=== PATIENT | female | born 1985 | race African-American/Black ===

== ENCOUNTER 2016-04-30 18:29 | Emergency (ER) | payer MEDICAID ==
[2016-04-30] MEDS ORDERED: ONDANSETRON 4 MG TAB.RAPDIS PO ONE (19:27)
--- NOTE | 2016-04-30 19:28 | ER Document Report ---
ED Medical Screen (RME) - General Stated Complaint: BODY PAIN Time seen by provider: 19:28 Mode of Arrival: Wheelchair Information source: Patient Notes: 30 yo female c/o low midline pelvic pain for serveral days. No vaginal discharge or dysuria. Chest pain yesterday on the right side. LMP 12-13-16 Hx ovarain cyst TRAVEL OUTSIDE OF THE [place] IN LAST 30 DAYS: No - Related Data Allergies/Adverse Reactions: No Known Allergies Allergy (Verified 04/30/16 19:19) Past Medical History Pulmonary Medical History: Reports: Hx Asthma, Hx Pneumonia Neurological Medical History: Reports: Hx Migraine Endocrine Medical History: Denies: Hx Diabetes Mellitus Type 1, Hx Diabetes Mellitus Type 2 Renal/ Medical History: Reports: Hx Kidney Stones, Hx Ovarian Cysts Psychiatric Medical History: Denies: Hx Depression Past Surgical History: Reports: Hx Kidney (Renal Surgery) - stents for stones, Hx Tonsillectomy, Hx Urinary Tract Surgery - ureter stents - Immunizations Immunizations up to date: Yes Hx Diphtheria, Pertussis, Tetanus Vaccination: Yes Physical Exam - Vital signs Vitals: Temp Pulse Resp BP Pulse Ox 98.6 F 108 H 16 117/74 100 04/30/16 18:41 04/30/16 18:41 04/30/16 18:41 04/30/16 18:41 04/30/16 18:41 Course - Vital Signs Vital signs: Temp Pulse Resp BP Pulse Ox 98.6 F 107 H 16 117/74 100 04/30/16 19:19 04/30/16 19:19 04/30/16 19:19 04/30/16 19:19 04/30/16 19:19
[2016-04-30] MEDS ORDERED: KETOROLAC TROMETHAMINE 60 MG/2 ML SDV IM ONE (20:12)
[2016-04-30] MEDS ORDERED: OXYCODONE-ACETAMINOPHEN 5-325 MG TABLET PO ONE (20:12)
[2016-04-30 20:23] LABS: APPEARANCE,URINE SLIGHTLY-CLOUDY; BILIRUBIN,URINE NEGATIVE (NEGATIVE); GLUCOSE, URINE NEGATIVE (NEGATIVE); KETONES,URINE NEGATIVE (NEGATIVE); LEUKOCYTE ESTERASE,URINE LARGE (NEGATIVE); NITRITE,URINE POSITIVE (NEGATIVE); PROTEIN,URINE NEGATIVE (NEGATIVE); URINE SPECIFIC GRAVITY 1.015; UROBILINOGEN,URINE NEGATIVE mg/dL (<2.0)
[2016-04-30] MEDS ORDERED: CEFTRIAXONE INJ 1000 MG VIAL IM ONE (20:53)
[2016-04-30] MEDS ORDERED: LIDOCAINE 1% INJ-PF (10 MG/ML) 30 ML SDV INFIL ONE (20:53)
[2016-04-30] MEDS ORDERED: ONDANSETRON ODT 4 MG TAB (6 TAB/DSPK) PO PRN (20:54)
[2016-04-30] MEDS ORDERED: HYDROCODONE/ACETAMINOPHEN 5-325 MG 6 TAB/DSPK PO PRN (20:54)
--- NOTE | 2016-04-30 20:54 | ER Document Report ---
ED General - General Chief Complaint: Abdominal Pain Stated Complaint: BODY PAIN Mode of Arrival: Wheelchair Notes: Patient is a 30-year-old female without significant past medical history who presents with bilateral flank pain, dysuria, and suprapubic abdominal pain for the past 3 days. Describes it as constant, dull, aching pain. Nothing improves or worsens the pain. States she's had similar symptoms in the past with urinary tract infections. She has not had any fever. Notes associated nausea without vomiting. She has not spoken to her primary care physician regarding today's concerns. Denies any headache, neck pain, lethargy, or fever. TRAVEL OUTSIDE OF THE [place] IN LAST 30 DAYS: No - Related Data Allergies/Adverse Reactions: No Known Allergies Allergy (Verified 04/30/16 19:19) Past Medical History - General Information source: Patient - Social History Smoking Status: Current Every Day Smoker Chew tobacco use (# tins/day): No Frequency of alcohol use: Social Drug Abuse: None Lives with: Spouse/Significant other Family History: Reviewed & Not Pertinent Patient has suicidal ideation: No Patient has homicidal ideation: No Pulmonary Medical History: Reports: Hx Asthma, Hx Pneumonia Neurological Medical History: Reports: Hx Migraine Endocrine Medical History: Denies: Hx Diabetes Mellitus Type 1, Hx Diabetes Mellitus Type 2 Renal/ Medical History: Reports: Hx Kidney Stones, Hx Ovarian Cysts Psychiatric Medical History: Denies: Hx Depression Past Surgical History: Reports: Hx Kidney (Renal Surgery) - stents for stones, Hx Tonsillectomy, Hx Urinary Tract Surgery - ureter stents - Immunizations Immunizations up to date: Yes Hx Diphtheria, Pertussis, Tetanus Vaccination: Yes Review of Systems - Review of Systems Notes: Constitutional: Negative for fever. HENT: Negative for sore throat. Eyes: Negative for visual changes. Cardiovascular: Negative for chest pain. Respiratory: Negative for shortness of breath. Gastrointestinal: Positive for abdominal pain, negative for vomiting or diarrhea. Genitourinary: Positive for dysuria and bilateral flank pain. Musculoskeletal: Negative for back pain. Skin: Negative for rash. Neurological: Negative for headaches, weakness or numbness. 10 point ROS negative except as marked above and in HPI. Physical Exam - Vital signs Vitals: Temp Pulse Resp BP Pulse Ox 98.6 F 108 H 16 117/74 100 04/30/16 18:41 04/30/16 18:41 04/30/16 18:41 04/30/16 18:41 04/30/16 18:41 Interpretation: Tachycardic Notes: PHYSICAL EXAMINATION: GENERAL: Well-appearing, well-nourished and in no acute distress. HEAD: Atraumatic, normocephalic. EYES: Pupils equal round and reactive to light, extraocular movements intact, sclera anicteric, conjunctiva are normal. ENT: nares patent, oropharynx clear without exudates. Moist mucous membranes. NECK: Normal range of motion, supple without lymphadenopathy LUNGS: Breath sounds clear to auscultation bilaterally and equal. No wheezes rales or rhonchi. HEART: Regular rate and rhythm without murmurs ABDOMEN: Soft, nontender, normoactive bowel sounds. No guarding, no rebound. No masses appreciated. Bilateral CVA tenderness on palpation Pelvic: White vaginal discharge. No cervical motion tenderness. No focal adnexal tenderness. Suprapubic tenderness to palpation EXTREMITIES: Normal range of motion, no pitting or edema. No cyanosis. NEUROLOGICAL: No focal neurological deficits. Moves all extremities spontaneously and on command. PSYCH: Normal mood, normal affect. SKIN: Warm, Dry, normal turgor, no rashes or lesions noted. Course - Re-evaluation Re-evalutation: 05/01/16 03:33 Presentation is most consistent with acute pyelonephritis. Laboratories do demonstrate a large amount of white blood cells in the urine as well as bacteria. Patient has had constitutional symptoms at home as well as a fever. CVA tenderness is present on exam. The remainder laboratories are relatively unremarkable without evidence of renal dysfunction. I do not suspect an acute appendicitis, biliary pathology, pancreatitis, intra-abdominal abscess, or tubo- ovarian abscess based on history and examination. Patient has been given a dose of IV ceftriaxone and a liter of fluids. Patient is able to tolerate oral intake without difficulty. Will be discharged home on 7 day course of cephalexin. A urine culture has been sent. Strict return precautions and follow-up recommendations have been discussed at length. - Vital Signs Vital signs: Temp Pulse Resp BP Pulse Ox 98.6 F 100 16 128/61 H 99 04/30/16 22:12 04/30/16 22:12 04/30/16 22:12 04/30/16 22:12 04/30/16 22:12 - Laboratory Result Diagrams: 04/30/16 20:40 04/30/16 20:40 Laboratory results interpreted by me: 04/30/16 04/30/16 20:01 20:40 WBC 13.3 H Hgb 11.6 L Hct 35.7 L MCH 26.5 L Absolute Neutrophils 10.2 H Urine Blood SMALL H Urine Nitrite POSITIVE H Ur Leukocyte Esterase LARGE H Discharge - Discharge Clinical Impression: Pyelonephritis, Bacterial vaginosis Condition: Good Disposition: HOME, SELF-CARE Additional Instructions: You have been diagnosed with a condition called pyelonephritis which is an infection involving your kidneys and bladder. You have been given a dose of antibiotics here in the emergency department to help begin to treat this infection. Your pelvic exam also shows an overgrowth of normal vaginal bacteria called bacterial vaginosis. Your also being sent home on antibiotics for both of these infections. Please start taking these later on today when you fill the prescription. Complete the course even if you feel better. Please return if you have persistent vomiting, pass out, have worsening pain, become unable to tolerate fluids, or have any other symptoms that are concerning to you. Please follow-up with your primary care physician in the next 24-48 hours. Prescriptions: Cephalexin Monohydrate [Keflex 500 mg Capsule] 500 mg PO QID #28 capsule Fluconazole [Diflucan] 200 mg PO ONCE PRN #1 tablet PRN Reason: Metronidazole [Flagyl 500 mg Tablet] 500 mg PO Q6H #28 tablet Referrals: NATASHA MAYES PA-C [Primary Care Provider] - Follow up as needed
[2016-04-30 21:05] LABS: ABSOLUTE EOSINOPHILS # (AUTO) 0.2 10^3/uL (0.0-0.6); ABSOLUTE MONOCYTES (AUTO) 0.8 10^3/uL (0.1-1.4); ABSOLUTE NEUT (AUTO) 10.2 10^3/uL (1.7-8.2); BASOPHILS % (AUTO) 0.3 % (0-2); EOSINOPHILS % (AUTO) 1.6 % (0-6); HEMATOCRIT 35.7 % (36.0-47.0); HEMOGLOBIN 11.6 g/dL (12.0-15.5); HGB HCT DIFFERENCE -0.9; LYMPHOCYTES % (AUTO) 15.1 % (13-45); MEAN CORPUSCULAR HEMOGLOBIN 26.5 pg (27.0-33.4); MEAN CORPUSCULAR HGB CONC 32.6 g/dL (32.0-36.0); MEAN CORPUSCULAR VOLUME 81 fl (80-97); MONOCYTES % (AUTO) 6.3 % (3-13); RED CELL DISTRIBUTION WIDTH 13.5 % (11.5-14.0); SEGMENTED NEUTROPHILS % (AUTO) 76.7 % (42-78); WHITE BLOOD COUNT 13.3 10^3/uL (4.0-10.5)
[2016-04-30] MEDS ORDERED: CEFTRIAXONE 1 GM/D5W RTU 50 ML IV ONE (21:20)
[2016-04-30 21:24] LABS: ALANINE AMINOTRANSFERASE 34 U/L (9-52); ALBUMIN 3.8 g/dL (3.5-5.0); ALKALINE PHOSPHATASE 75 U/L (38-126); ANION GAP 13 (5-19); ASPARTATE AMINO TRANSFERASE 14 U/L (14-36); BILIRUBIN,TOTAL 0.6 mg/dL (0.2-1.3); BLOOD UREA NITROGEN 7 mg/dL (7-20); CALCIUM 9.1 mg/dL (8.4-10.2); CARBON DIOXIDE 25 mmol/L (22-30); CHLORIDE 102 mmol/L (98-107); CREATININE RESULT 0.53 mg/dL (0.52-1.25); GLUCOSE 83 mg/dL (75-110); POTASSIUM 3.8 mmol/L (3.6-5.0); SODIUM 139.9 mmol/L (137-145); TOTAL PROTEIN 6.8 g/dL (6.3-8.2)
--- NOTE | 2016-04-30 21:29 | EKG REPORT ---
SEVERITY:- OTHERWISE NORMAL ECG - SINUS TACHYCARDIA : Confirmed by: Caleb Toth 30-Apr-2016 21:28:22
[2016-04-30 22:14] VITALS: BP 128/61
[2016-04-30 22:20] LABS: CHLAM PCR NOT DETECTED (NOT DETECT)
== END 2016-04-30 22:06 | disposition home or self-care (01) ==
LOC: ER 18:29
DX: N12 Tubulo-interstitial nephritis, not specified as acute or chronic (principal); N76.0 Acute vaginitis; B96.89 Other specified bacterial agents as the cause of diseases classified elsewhere; R10.9 Unspecified abdominal pain; R30.0 Dysuria; R11.0 Nausea; R00.0 Tachycardia, unspecified; J45.909 Unspecified asthma, uncomplicated; F17.200 Nicotine dependence, unspecified, uncomplicated; Z87.440 Personal history of urinary (tract) infections; Z87.442 Personal history of urinary calculi; Z87.42 Personal history of other diseases of the female genital tract; Z98.890 Other specified postprocedural states
CPT/HCPCS: 93005; 99283; 96372; 96365; 36415; 87086; 87210; 85025; 81025; 87088; 80053; 81001; 87186; 87491; 87591; 93010; J1885; S0119; J0696

== ENCOUNTER 2016-05-02 20:03 | Emergency (ER) | payer MEDICAID ==
--- NOTE | 2016-05-02 20:44 | ER Document Report ---
ED Medical Screen (RME) - General Stated Complaint: LOWER ABDOMINAL PAIN Time seen by provider: 20:42 Mode of Arrival: Ambulatory Information source: Patient Notes: 30-year-old female complaining of 5/5 left lower quadrant abdominal pain that started yesterday. She was seen here Sunday and diagnosed with urinary tract infection. Pelvic exam was done. No imaging. She's been taking Keflex and the urine culture showed Escherichia coli that should be sensitive to the Keflex. She is nauseated. TRAVEL OUTSIDE OF THE [place] IN LAST 30 DAYS: No - Related Data Allergies/Adverse Reactions: No Known Allergies Allergy (Verified 04/30/16 19:19) Past Medical History Pulmonary Medical History: Reports: Hx Asthma, Hx Pneumonia Neurological Medical History: Reports: Hx Migraine Endocrine Medical History: Denies: Hx Diabetes Mellitus Type 1, Hx Diabetes Mellitus Type 2 Renal/ Medical History: Reports: Hx Kidney Stones, Hx Ovarian Cysts Psychiatric Medical History: Denies: Hx Depression Past Surgical History: Reports: Hx Kidney (Renal Surgery) - stents for stones, Hx Tonsillectomy, Hx Urinary Tract Surgery - ureter stents - Immunizations Immunizations up to date: Yes Hx Diphtheria, Pertussis, Tetanus Vaccination: Yes Physical Exam - Vital signs Vitals: Temp Pulse Resp BP Pulse Ox 98.7 F 115 H 18 121/65 97 05/02/16 20:12 05/02/16 20:12 05/02/16 20:12 05/02/16 20:12 05/02/16 20:12 Course - Vital Signs Vital signs: Temp Pulse Resp BP Pulse Ox 98.7 F 115 H 18 121/65 97 05/02/16 20:12 05/02/16 20:12 05/02/16 20:12 05/02/16 20:12 05/02/16 20:12
[2016-05-02] MEDS ORDERED: ONDANSETRON 4 MG TAB.RAPDIS PO ONE (20:46)
[2016-05-02] MEDS ORDERED: OXYCODONE-ACETAMINOPHEN 5-325 MG TABLET PO ONE (20:48)
[2016-05-02 21:32] LABS: ABSOLUTE EOSINOPHILS # (AUTO) 0.1 10^3/uL (0.0-0.6); ABSOLUTE LYMPHOCYTES (AUTO) 1.6 10^3/uL (0.5-4.7); ABSOLUTE MONOCYTES (AUTO) 0.6 10^3/uL (0.1-1.4); ABSOLUTE NEUT (AUTO) 9.7 10^3/uL (1.7-8.2); BASOPHILS % (AUTO) 0.4 % (0-2); EOSINOPHILS % (AUTO) 1.1 % (0-6); HEMATOCRIT 34.5 % (36.0-47.0); HEMOGLOBIN 11.2 g/dL (12.0-15.5); HGB HCT DIFFERENCE -0.9; MEAN CORPUSCULAR HEMOGLOBIN 26.6 pg (27.0-33.4); MEAN CORPUSCULAR HGB CONC 32.4 g/dL (32.0-36.0); MEAN CORPUSCULAR VOLUME 82 fl (80-97); MONOCYTES % (AUTO) 4.7 % (3-13); RED BLOOD COUNT 4.21 10^6/uL (3.72-5.28); RED CELL DISTRIBUTION WIDTH 13.3 % (11.5-14.0); SEGMENTED NEUTROPHILS % (AUTO) 80.8 % (42-78)
[2016-05-02 21:38] LABS: APPEARANCE,URINE SLIGHTLY-CLOUDY; BILIRUBIN,URINE NEGATIVE (NEGATIVE); GLUCOSE, URINE NEGATIVE (NEGATIVE); KETONES,URINE NEGATIVE (NEGATIVE); LEUKOCYTE ESTERASE,URINE MODERATE (NEGATIVE); NITRITE,URINE NEGATIVE (NEGATIVE); PROTEIN,URINE NEGATIVE (NEGATIVE); URINE SPECIFIC GRAVITY 1.023
[2016-05-02 21:56] LABS: ALANINE AMINOTRANSFERASE 24 U/L (9-52); ALBUMIN 3.9 g/dL (3.5-5.0); ALKALINE PHOSPHATASE 67 U/L (38-126); ANION GAP 13 (5-19); ASPARTATE AMINO TRANSFERASE 17 U/L (14-36); BILIRUBIN,TOTAL 0.4 mg/dL (0.2-1.3); BLOOD UREA NITROGEN 9 mg/dL (7-20); CALCIUM 9.3 mg/dL (8.4-10.2); CARBON DIOXIDE 28 mmol/L (22-30); CHLORIDE 99 mmol/L (98-107); CREATININE RESULT 0.54 mg/dL (0.52-1.25); GLUCOSE 131 mg/dL (75-110); POTASSIUM 3.2 mmol/L (3.6-5.0); SODIUM 140.2 mmol/L (137-145); TOTAL PROTEIN 7.1 g/dL (6.3-8.2)
[2016-05-02] MEDS ORDERED: NORMAL SALINE 1000 ML 1,000 ML IV ONE (21:58)
[2016-05-02] MEDS ORDERED: CEFTRIAXONE INJ 1000 MG VIAL IV ONE (21:58)
[2016-05-02] MEDS ORDERED: MORPHINE SULFATE 10 MG/ML INJ IV ONE (22:08)
[2016-05-02] MEDS ORDERED: ONDANSETRON HCL INJ/PF 4 MG/2 ML SDV IV ONE (22:08)
--- NOTE | 2016-05-02 22:08 | ER Document Report ---
ED General - General Chief Complaint: Lower Abdominal Pain Stated Complaint: LOWER ABDOMINAL PAIN Mode of Arrival: Ambulatory Notes: Patient is a 30 year old female presents with complaint of left lower quadrant abdominal pain. Some nausea. No vomiting. Some alternating feelings of hot and cold. Some palpitations. She was seen here 2 days ago and had a pelvic exam performed. Cultures were negative for gonorrhea and chlamydia. Her urinalysis showed evidence of UTI at that time. She start Keflex. Since then her dysuria is gone. She still has continued pain and left lower quadrant. She does have a previous history of kidney stones and ureteral stents that were placed in 2004 when she was . Ureteral stents have since been removed. She's concerned because she still has pain in left lower quadrantbeen having palpitations. No other complaints at this time. TRAVEL OUTSIDE OF THE [place] IN LAST 30 DAYS: No - Related Data Allergies/Adverse Reactions: No Known Allergies Allergy (Verified 05/02/16 21:56) Past Medical History - General Information source: Patient - Social History Smoking Status: Unknown if Ever Smoked Family History: Reviewed & Not Pertinent Patient has suicidal ideation: No Patient has homicidal ideation: No Pulmonary Medical History: Reports: Hx Asthma, Hx Pneumonia Neurological Medical History: Reports: Hx Migraine Endocrine Medical History: Denies: Hx Diabetes Mellitus Type 1, Hx Diabetes Mellitus Type 2 Renal/ Medical History: Reports: Hx Kidney Stones, Hx Ovarian Cysts Psychiatric Medical History: Denies: Hx Depression Past Surgical History: Reports: Hx Kidney (Renal Surgery) - stents for stones, Hx Tonsillectomy, Hx Urinary Tract Surgery - ureter stents - Immunizations Immunizations up to date: Yes Hx Diphtheria, Pertussis, Tetanus Vaccination: Yes Review of Systems - Review of Systems Notes: My Normal Review Basic REVIEW OF SYSTEMS: CONSTITUTIONAL : Denies fever, chills, or sweats. Denies recent illness.ion. RESPIRATORY: Denies cough, cold, or chest congestion. Denies shortness of breath, difficulty breathing, or wheezing. GASTROINTESTINAL: Left lower quadrant abdominal pain. Denies nausea, vomiting, or diarrhea. Denies constipation. Last BM: GENITOURINARY: Some dysuria which is improving.. FEMALE GENITOURINARY: Denies vaginal bleeding, abnormal or irregular periods. MUSCULOSKELETAL: Denies neck or back pain or joint pain or swelling. SKIN: Denies rash or skin lesions. NEUROLOGICAL: Denies altered mental status or loss of consciousness. Denies headache. Denies weakness or paralysis or loss of use of either side. Denies problems with gait or speech. Denies sensory or motor loss. ALL OTHER SYSTEMS REVIEWED AND NEGATIVE. Physical Exam - Vital signs Vitals: Temp Pulse Resp BP Pulse Ox 98.7 F 115 H 18 121/65 97 05/02/16 20:12 05/02/16 20:12 05/02/16 20:12 05/02/16 20:12 05/02/16 20:12 - Notes Notes: General Appearance: Well nourished, alert, cooperative, no acute distress, no obvious discomfort. Well-appearing. Vitals: reviewed, See vital signs table. Head: no swelling or tenderness to the head Eyes: PERRL, EOMI, Conjuctiva clear Mouth: No decreasd moisture Neck: Supple, no neck tenderness, No thyromegaly Lungs: No wheezing, No rales, No rhonci, No accessory muscle use, good air exchange bilaterally. Heart: Tachycardic rate, Regular rythm, No murmur, no rub Abdomen: Normal BS, soft, No rigidity, mild left lower quadrant abdominal tenderness to palpation, No guarding, no rebound, no abdominal masses, no organomegaly Extremities: strength 5/5 in all extremities, good pulses in all extremities, no swelling or tenderness in the extremities, no edema. Skin: warm, dry, appropriate color, no rash Neuro: speech clear, oriented x 3, normal affect, responds appropriately to questions. Course - Re-evaluation Re-evalutation: 05/03/16 01:54 Patient continues cleanse pain. She says she has some mild right-sided pain. Most her pain isn't the left lower quadrant still. CT scan is negative. Ultrasound does not show anything on the left side that would be concerning. I suspect this still could be related to her urinary tract infection. Her heart rate has improved. She still afebrile. Her laboratory evaluation is unremarkable. We'll give her a different dose of pain medication to see if this makes her more comfortable. - Vital Signs Vital signs: Temp Pulse Resp BP Pulse Ox 98.4 F 91 18 118/57 L 99 05/03/16 00:49 05/03/16 00:49 05/03/16 00:49 05/03/16 00:49 05/03/16 00:49 - Laboratory Result Diagrams: 05/02/16 21:05 05/02/16 21:05 Laboratory results interpreted by me: 05/02/16 05/02/16 05/02/16 21:05 21:05 21:10 WBC 12.0 H Hgb 11.2 L Hct 34.5 L MCH 26.6 L Seg Neutrophils % 80.8 H Absolute Neutrophils 9.7 H Potassium 3.2 L Glucose 131 H Urine Blood MODERATE H Urine Urobilinogen 2.0 H Ur Leukocyte Esterase MODERATE H - Transfer of Care Notes: 05/03/16 03:25 Patient's tachycardia has resolved on recheck her vital signs. Think her tachycardia is most salted from pain. Being that she did have significant left lower quadrant pain a did to CT scan make sure is no associated kidney stone. This is negative. Ultrasound showed that she had a right ovarian cyst as well as another hyperechoic area in the right adnexa. The radiologist mentioned this could represent ectopic if a clinically correlates. Her serum test is clearly negative. It would be highly unlikely for the patient to have a visible ectopic with a negative serum test. Patient's follow up appointment with her doctor tomorrow. I encourage her to continue taking antibiotics they appear to be improving her UTI. I encourage a follow-up with her primary care doctor tomorrow as scheduled. I did give her a copy of her ultrasound. Informed it's very important that her option be reported repeated in 2 weeks to month to make sure that the cyst is not changing and then followed from there. She is understanding of this. Patient be discharged home. I strongly encouraged patient to return to ER shows worsening pain, fevers, vomiting, or feels unwell. Patient agrees with plan and will be discharged home. 05/03/16 03:27 Dictation of this chart was performed using voice recognition software; therefore, there may be some unintended grammatical errors. Discharge - Discharge Clinical Impression: Abdominal pain Qualifiers: Abdominal location: lower abdomen, unspecified Qualified Code(s): R10.30 - Lower abdominal pain, unspecified UTI (urinary tract infection) Qualifiers: Urinary tract infection type: site unspecified Hematuria presence: without hematuria Qualified Code(s): N39.0 - Urinary tract infection, site not specified Ovarian cyst Qualifiers: Laterality: right Qualified Code(s): N83.201 - Unspecified ovarian cyst, right side Condition: Good Disposition: HOME, SELF-CARE Instructions: Oral Narcotic Medication ([facility]) Additional Instructions: Please follow up with your doctor tomorrow as scheduled. please bring your ultrasound results with you. You should have an ultrasound scheduled in the next 2 weeks to reevaluate your right ovary. Your serum test was negative. These means an ectopic is highly unlikely. Please return to the ER immediately if you ave worsening pain, fevers, vomiting, or feel that your symptoms are worsening in any way. Referrals: NATASHA MAYES PA-C [Primary Care Provider] - Follow up tomorrow
[2016-05-02] MEDS ORDERED: POTASSIUM CHLORIDE 10 MEQ TABLET.SA PO ONE (22:20)
[2016-05-03] MEDS ORDERED: HYDROMORPHONE HCL INJ/PF 2 MG/ML AMPULE IV ONE (01:53)
[2016-05-03] MEDS ORDERED: HYDROCODONE/ACETAMINOPHEN 5-325 MG 6 TAB/DSPK PO PRN (03:21)
[2016-05-03 03:50] VITALS: BP 104/52
== END 2016-05-03 03:50 | disposition home or self-care (01) ==
LOC: ER 20:03
DX: N39.0 Urinary tract infection, site not specified (principal); N83.201 Unspecified ovarian cyst, right side; R10.32 Left lower quadrant pain; R11.0 Nausea; R00.2 Palpitations; J45.909 Unspecified asthma, uncomplicated; R00.0 Tachycardia, unspecified; Z87.442 Personal history of urinary calculi
CPT/HCPCS: 99284; 96361; 96374; 96375; 36415; 87086; 83735; 84703; 85025; 80053; 81001; 76830; 93976; 76380; S0119; J2270; J1170; J0696; J2405; J7030

== ENCOUNTER 2016-09-02 16:28 | Emergency (ER) | payer MEDICAID ==
[2016-09-02] MEDS ORDERED: HYDROMORPHONE HCL INJ/PF 2 MG/ML AMPULE IV ONE (16:36)
[2016-09-02] MEDS ORDERED: NORMAL SALINE 1000 ML 1,000 ML IV PRN (16:36)
[2016-09-02] MEDS ORDERED: FENTANYL CITRATE INJ/PF 100 MCG/2 ML AMPUL IV ONE ×2 (17:07→18:36)
[2016-09-02] MEDS ORDERED: PROPOFOL INJ 200 MG/20 ML VIAL IV ONE ×2 (17:08→18:35)
--- NOTE | 2016-09-02 17:09 | ER Document Report ---
ED Extremity Problem, Lower - General Chief Complaint: Ankle Injury Stated Complaint: LEFT ANKLE INJURY Time Seen by Provider: 09/02/16 16:36 Mode of Arrival: Wheelchair Information source: Patient TRAVEL OUTSIDE OF THE [place] IN LAST 30 DAYS: No - HPI Patient complains to provider of: Injury, Pain Location: Ankle Occurred: Just prior to arrival Where: Home Onset/Duration: Sudden Quality of pain: Achy Severity: Severe Pain Level: 5 Context: Fell Recent injury: Yes Associated symptoms: Unable to bear weight Exacerbated by: Movement Relieved by: Nothing Notes: Patient is a 30-year-old female who presents to the emergency room for complaints of left ankle injury after trip and fall at home, patient is unable to ambulate on her ankle, has a positive deformity, denies any numbness or tingling distally, denies any injury elsewhere, history of gallbladder surgery in the past without complications - Related Data Allergies/Adverse Reactions: No Known Allergies Allergy (Verified 09/02/16 16:30) Past Medical History - General Information source: Patient - Social History Smoking Status: Current Every Day Smoker Family History: Reviewed & Not Pertinent Patient has suicidal ideation: No Patient has homicidal ideation: No Pulmonary Medical History: Reports: Hx Asthma, Hx Pneumonia Neurological Medical History: Reports: Hx Migraine Endocrine Medical History: Denies: Hx Diabetes Mellitus Type 1, Hx Diabetes Mellitus Type 2 Renal/ Medical History: Reports: Hx Kidney Stones, Hx Ovarian Cysts. Denies: Hx Peritoneal Dialysis Psychiatric Medical History: Denies: Hx Depression Past Surgical History: Reports: Hx Kidney (Renal Surgery) - stents for stones, Hx Tonsillectomy, Hx Urinary Tract Surgery - ureter stents - Immunizations Immunizations up to date: Yes Hx Diphtheria, Pertussis, Tetanus Vaccination: Yes Review of Systems - Review of Systems Constitutional: No symptoms reported EENT: No symptoms reported Cardiovascular: No symptoms reported Respiratory: No symptoms reported Gastrointestinal: No symptoms reported Genitourinary: No symptoms reported Female Genitourinary: No symptoms reported Musculoskeletal: See HPI Skin: No symptoms reported Hematologic/Lymphatic: No symptoms reported Neurological/Psychological: No symptoms reported -: Yes All other systems reviewed and negative Physical Exam - Vital signs Vitals: Temp Pulse Resp BP Pulse Ox 98.4 F 106 H 30 H 140/105 H 98 09/02/16 16:31 09/02/16 16:31 09/02/16 16:31 09/02/16 16:31 09/02/16 16:31 Interpretation: Hypertensive, Tachycardic - General General appearance: Appears well, Alert - HEENT Head: Normocephalic, Atraumatic Eyes: Normal Pupils: PERRL - Respiratory Respiratory status: No respiratory distress Chest status: Nontender Breath sounds: Normal Chest palpation: Normal - Cardiovascular Rhythm: Regular Heart sounds: Normal auscultation Murmur: No - Abdominal Inspection: Normal Distension: No distension Bowel sounds: Normal Tenderness: Nontender Organomegaly: No organomegaly - Back Back: Normal, Nontender - Extremities General upper extremity: Normal inspection, Nontender, Normal color, Normal ROM , Normal temperature General lower extremity: Normal color, Normal temperature. No: Karena's sign Ankle: Deformity - Positive deformity to left ankle, pain with range of motion testing, distal sensation and motor is intact with 2+ DP pulses - Neurological Neuro grossly intact: Yes Cognition: Normal Orientation: AAOx4 [place] Coma Scale Eye Opening: Spontaneous [place] Coma Scale Verbal: Oriented Esmer Coma Scale Motor: Obeys Commands Esmer Coma Scale Total: 15 Speech: Normal Motor strength normal: LUE, RUE, LLE, RLE Sensory: Normal - Psychological Associated symptoms: Normal affect, Normal mood - Skin Skin Temperature: Warm Skin Moisture: Dry Skin Color: Normal Course - Re-evaluation Re-evalutation: 09/02/16 17:22 Patient was discussed with on-call orthopedic surgeon, Dr Santana, recommends patient's ankle be reduced, splinted, and have her follow up in the office on Sunday for likely surgery to be scheduled at a later date 09/02/16 18:36 Patient awake and alert, tolerating by mouth intake, imaging findings were discussed with her at bedside, she was given instructions for follow-up and return, patient acknowledges understanding and agreement with this plan - Vital Signs Vital signs: Temp Pulse Resp BP Pulse Ox 98.4 F 106 H 18 122/85 100 09/02/16 16:31 09/02/16 16:31 09/02/16 18:19 09/02/16 18:19 09/02/16 18:19 - Diagnostic Test Radiology reviewed: Image reviewed, Reports reviewed Procedures - Conscious Sedation Conscious sedation Time started: 17:40 Time completed: 18:12 Consent obtained: Yes Indication: ankle fracture dislocation Normal healthy pt.: P1. - ASA Classification Airway Evaluation: Normal anatomy Mallampati Classification: Class 2 Used during procedure: Suction available, IV access obtained, Pulse ox on pt., monitoring engineer on pt. Medications administered: Diprivan Reversal agents: None I personally performed/intraservice time: Sedation, Procedure, 31-45 min Complications: No - Immobilization Left Ankle Time completed: 18:05 Pre-Proc Neuro Vasc Exam: Normal Immobilizer type: Posterior ankle, Sugar tong Performed by: Provider, PCT Post-Proc Neuro Vasc Exam: Normal Alignment checked and good: Yes - Joint Reduction/Fracture Care Left Ankle Time completed: 18:00 Consent obtained: Yes Conscious sedation: Yes Pre-procedure NV exam: Yes Fracture: Closed Manipulation comment: gentle traction with pressure on posterior tibial Post-procedure NV exam: Yes Post-reduction x-ray: Joint reduced Reduction attempts: 2 Complications: No Discharge - Discharge Clinical Impression: Ankle fracture, bimalleolar, closed Qualifiers: Encounter type: initial encounter Laterality: left Qualified Code(s): S82.842A - Displaced bimalleolar fracture of left lower leg, initial encounter for closed fracture Ankle dislocation Qualifiers: Encounter type: initial encounter Laterality: left Qualified Code(s): S93.05XA - Dislocation of left ankle joint, initial encounter Condition: Stable Disposition: HOME, SELF-CARE Instructions: Ice & Elevation ([facility]), Oral Narcotic Medication ([facility]), Use of Crutches ([facility]), Soft Ankle Splint ([facility]), Fractured Ankle (Bimalleolar) ([facility]), Post Sedation Instructions ([facility]) Additional Instructions: Follow up with your primary care provider and an orthopedic surgeon in one to 2 days. Return to the emergency room immediately if symptoms worsen or any additional concerns. Ice and elevate the affected extremity. Limit weightbearing. Prescriptions: Oxycodone HCl/Acetaminophen [Percocet 5-325 mg Tablet] 1 - 2 tab PO ASDIR PRN # 30 tablet PRN Reason: Forms: Return to Work Referrals: GUME MEJIA MD [ACTIVE STAFF] - Follow up as needed
[2016-09-02] MEDS ORDERED: HYDROCODONE/ACETAMINOPHEN 5-325 MG 6 TAB/DSPK PO PRN (18:36)
[2016-09-02 19:27] VITALS: BP 133/78
== END 2016-09-02 19:10 | disposition home or self-care (01) ==
LOC: ER 16:28
PROC: 0QSKXZZ Reposition Left Fibula, External Approach (ICD-10-PCS; principal; 2016-09-02)
PROC: 0QSHXZZ Reposition Left Tibia, External Approach (ICD-10-PCS; 2016-09-02)
DX: S82.842A Displaced bimalleolar fracture of left lower leg, initial encounter for closed fracture (principal); S93.05XA Dislocation of left ankle joint, initial encounter; W19.XXXA Unspecified fall, initial encounter; Y92.009 Unspecified place in unspecified non-institutional (private) residence as the place of occurrence of the external cause; F17.200 Nicotine dependence, unspecified, uncomplicated
CPT/HCPCS: 99284; 99153; 96374; 73600; 27810; J3010; J1170; J2704

== ENCOUNTER 2016-09-08 11:06 | Day surgery (SDC) | payer MEDICAID ==
[~2016-09-08 11:06] MED LIST: CEFAZOLIN 2 GM/D5W RTU 2 GM/50 ML RTUPB IV PRN; DEXAMETHASONE SOD PHOSPHATE INJ 4 MG/1 ML VIAL ONE; GLYCOPYRROLATE INJ 0.4 MG/2 ML VIAL ONE; LIDOCAINE 2% INJ-PF (20 MG/ML) 10 ML AMPUL ONE; METOCLOPRAMIDE HCL INJ/PF 10 MG/2 ML SDV ONE; ONDANSETRON HCL INJ/PF 4 MG/2 ML SDV ONE; SUCCINYLCHOLINE CHLORIDE INJ 200 MG/10 ML VIAL ONE
[2016-09-08 12:16] LABS: HEMATOCRIT 36.8 % (36.0-47.0); HEMOGLOBIN 11.9 g/dL (12.0-15.5); HGB HCT DIFFERENCE -1.1; MEAN CORPUSCULAR HEMOGLOBIN 26.4 pg (27.0-33.4); MEAN CORPUSCULAR HGB CONC 32.4 g/dL (32.0-36.0); MEAN CORPUSCULAR VOLUME 81 fl (80-97); RED BLOOD COUNT 4.52 10^6/uL (3.72-5.28); RED CELL DISTRIBUTION WIDTH 14.2 % (11.5-14.0); WHITE BLOOD COUNT 7.7 10^3/uL (4.0-10.5)
[2016-09-08 12:27] LABS: ANION GAP 12 (5-19); BLOOD UREA NITROGEN 12 mg/dL (7-20); CALCIUM 9.2 mg/dL (8.4-10.2); CARBON DIOXIDE 23 mmol/L (22-30); CHLORIDE 105 mmol/L (98-107); CREATININE RESULT 0.52 mg/dL (0.52-1.25); GLUCOSE 89 mg/dL (75-110); SODIUM 139.6 mmol/L (137-145)
[2016-09-08 12:46] LABS: APPEARANCE,URINE CLOUDY; BILIRUBIN,URINE NEGATIVE (NEGATIVE); GLUCOSE, URINE NEGATIVE (NEGATIVE); KETONES,URINE NEGATIVE (NEGATIVE); LEUKOCYTE ESTERASE,URINE MODERATE (NEGATIVE); NITRITE,URINE NEGATIVE (NEGATIVE); PROTEIN,URINE NEGATIVE (NEGATIVE); UROBILINOGEN,URINE NEGATIVE mg/dL (<2.0)
[2016-09-08] MEDS ORDERED: FENTANYL CITRATE INJ/PF 250 MCG/5 ML AMPULE ONE ×2 (13:16)
[2016-09-08] MEDS ORDERED: MORPHINE SULFATE 10 MG/ML INJ ONE ×2 (13:17→15:24)
[2016-09-08] MEDS ORDERED: MIDAZOLAM 2 MG/2 ML INJ ONE (13:17)
[2016-09-08] MEDS ORDERED: ACETAMINOPHEN 100 ML IV ONE (13:17)
[2016-09-08] MEDS ORDERED: PROPOFOL INJ 200 MG/20 ML VIAL IV ONE (13:17)
[2016-09-08] MEDS ORDERED: DEXAMETHASONE SOD PHOS INJ 10 MG/1 ML VIAL ONE (14:54)
[2016-09-08] MEDS ORDERED: OXYCODONE-ACETAMINOPHEN 5-325 MG TABLET PO PRN ×2 (15:02)
--- NOTE | 2016-09-08 15:02 | PDOC DISCHARGE SUMMARY ---
Discharge Summary (SDC) - Discharge Final Diagnosis: Status post open reduction internal fixation of left lateral malleolus ankle fracture Date of Surgery: 09/08/16 Discharge Date: 09/08/16 Condition: Good Treatment or Instructions: Keep splint dry clean and intact until follow-up in 2 weeks Elevate the extremity and apply ice as needed. Left lower extremity nonweightbearing with crutches. Prescriptions: Oxycodone HCl/Acetaminophen [Percocet 5-325 mg Tablet] 1 - 2 tab PO ASDIR PRN # 30 tablet PRN Reason: Discharge Diet: As Tolerated Respiratory Treatments at Home: Deep Breathing/Coughing Discharge Activity: No Driving, Keep Legs Elevated Home Care Assistance: None Needed Adaptive Devices on Discharge: Axillary Crutches Report the Following to Your Physician Immediately: Shortness of Breath, Vomiting, Increase in Pain, Fever over 101 Degrees, Unusual Bleeding, Drainage- Yellow, Drainage-Green, Drainage-Foul Smelling
--- NOTE | 2016-09-08 15:16 | Operative Report ---
Operative Report DATE OF SURGERY: 09/08/16 PREOPERATIVE DIAGNOSIS: Left ankle fracture/dislocation POSTOPERATIVE DIAGNOSIS: Same OPERATION: ORIF of left lateral malleolus fracture SURGEON: GUME BRAY ANESTHESIA: GA TISSUE REMOVED OR ALTERED: None COMPLICATIONS: None ESTIMATED BLOOD LOSS: 20 mL INTRAOPERATIVE FINDINGS: As above PROCEDURE: Patient received 2 g of Ancef in the preoperative holding area. Patient was now taken to the operating room and induced and intubated in supine position. Once the tube was secured a thigh tourniquet was applied to left extremity. Extremity was prepped and draped in a normal surgical fashion. Timeout was done identifying the past as the correct site. Esmarch was used to exsanguinate the extremity and the tourniquet was inflated to 300 mmHg. A standard lateral incision was done straight over the distal fibula. Check position was taken down to the bone and then periosteal elevator was used to expose the fracture site and elevate the periosteum at the fracture site. Both fragments were visualized and I Ramirezhmann was used to retract the tissue. I was able to then reduce the fracture with reduction clamps. C-arm pictures were taken to confirm our reduction. After the reduction I was able then to use proper AO technique and placed the lag screw that measured 24 mm. There is a 3.5 mm cortical screw. I was able to remove the clamp and the reduction held. I then applied the appropriate plate and make sure was in a proper alignment with the C-arm. Once I was satisfied with the proximal distal situation and the AP lateral position of the plate I proceeded then to use the drill guide and drill to drill the proximal hole in the plate in the distal fragment. I measured and placed a proper length screw. I repeated this with the distal hole in the plate to secure the proximal fragment. Reduction clamp was removed and the fracture stayed reduced. AP and lateral x-rays confirm there is no change in alignment. I then proceeded to fill in the remaining holes I drilling and using C-arm and measuring guide to applied appropriate screws. Once I was satisfied with my lateral fixation. At this point I proceeded to close my lateral wound with 0 Vicryl and 3-0 Vicryl and xena for skin. Tourniquet was let down and the dressing was applied. Xeroform 4 x 4 sterile dressing followed by Sof-Rol was applied. A posterior splint with a Ortho- Glass stirrup splint was applied and overwrapped with an Noe bandage. I held the foot in neutral and waiting until the splint hardened. At this point drapes were removed and patient was extubated and sent to PACU in stable condition.
[2016-09-08] MEDS ORDERED: ONDANSETRON HCL INJ/PF 4 MG/2 ML SDV ONE (16:14)
[2016-09-08] MEDS ORDERED: HYDROMORPHONE HCL INJ/PF 2 MG/ML AMPULE ONE (16:15)
[2016-09-08 17:54] VITALS: BP 115/68
--- NOTE | 2016-09-09 17:42 | EKG REPORT ---
SEVERITY:- NORMAL ECG - SINUS RHYTHM ST ELEV, PROBABLE NORMAL EARLY REPOL PATTERN : Confirmed by: Emma Fine MD 09-Sep-2016 17:41:40
== END 2016-09-08 17:25 | disposition home or self-care (01) ==
LOC: OROUT 11:06
PROVIDERS: ATTEND Orthopaedic Surgery
PROC: 0QSK04Z Reposition Left Fibula with Internal Fixation Device, Open Approach (ICD-10-PCS; principal; 2016-09-08 13:15)
DX: S82.62XA Displaced fracture of lateral malleolus of left fibula, initial encounter for closed fracture (principal); S93.05XA Dislocation of left ankle joint, initial encounter; X58.XXXA Exposure to other specified factors, initial encounter; M25.572 Pain in left ankle and joints of left foot; J45.909 Unspecified asthma, uncomplicated; F17.210 Nicotine dependence, cigarettes, uncomplicated
CPT/HCPCS: 36415; 85027; 80048; 81001; 73600; 71010; 93005; 93010; 27792; C1713 ×3; J2250; J1100 ×2; J3010; J3490 ×2; J2765; J2270; J1170; J0330; J2405; J2704; J0690; J0131; 01480

== ENCOUNTER 2017-11-13 15:57 | Emergency (ER) | payer MEDICAID ==
[2017-11-13 16:21] VITALS: BP 122/69
[2017-11-13] MEDS ORDERED: DIPH/PERTUSS(ACELL)/TETANUS VAC/PF 0.5 ML SYR (>=10YO) IM ONE (17:50)
[2017-11-13] MEDS ORDERED: CIPROFLOXACIN HCL 0.3% OPH SOLN 2.5 ML OD SCH (17:51)
--- NOTE | 2017-11-13 17:54 | ER Document Report ---
ED General - General Chief Complaint: Eye Problem Stated Complaint: EYE PAIN Time Seen by Provider: 11/13/17 17:29 Mode of Arrival: Ambulatory Information source: Patient TRAVEL OUTSIDE OF THE [place] IN LAST 30 DAYS: No - HPI Notes: Patient is a 31-year-old female history of contact lens use and asthma presents to the emergency department with report of cough congestion for last week productive of yellow greenish phlegm and she has had right eye discharge and mild erythema for the last 2 days, admits to rubbing her eye with a contact lens in place, now has right eye photophobia and pain. The patient reports no fever or chills or chest pain or abdominal pain or nausea or vomiting. No constipation or diarrhea. The patient cannot recall when her last tetanus shot was. - Related Data Allergies/Adverse Reactions: No Known Allergies Allergy (Verified 11/13/17 16:00) Past Medical History - General Information source: Patient - Social History Smoking Status: Current Every Day Smoker Frequency of alcohol use: None Drug Abuse: None Lives with: Family Family History: Reviewed & Not Pertinent Patient has suicidal ideation: No Patient has homicidal ideation: No - Past Medical History Cardiac Medical History: Reports: Hx Hypertension Denies: Hx Coronary Artery Disease, Hx Heart Attack Pulmonary Medical History: Reports: Hx Asthma, Hx Pneumonia Denies: Hx Bronchitis, Hx COPD Neurological Medical History: Reports: Hx Migraine. Denies: Hx Cerebrovascular Accident, Hx Seizures Endocrine Medical History: Denies: Hx Diabetes Mellitus Type 1, Hx Diabetes Mellitus Type 2 Renal/ Medical History: Reports: Hx Kidney Stones, Hx Ovarian Cysts. Denies: Hx Peritoneal Dialysis Musculoskeletal Medical History: Denies Hx Arthritis Psychiatric Medical History: Denies: Hx Depression Past Surgical History: Reports: Hx Kidney (Renal Surgery) - stents for stones, Hx Tonsillectomy, Hx Urinary Tract Surgery - ureter stents - Immunizations Immunizations up to date: Yes Hx Diphtheria, Pertussis, Tetanus Vaccination: Yes Review of Systems - Review of Systems Notes: ALL OTHER SYSTEMS REVIEWED AND NEGATIVE. Dictation was performed using [employer] voice recognition software Physical Exam - Vital signs Vitals: Temp Pulse Resp BP Pulse Ox 98.7 F 91 16 122/69 99 11/13/17 16:20 11/13/17 16:20 11/13/17 16:20 11/13/17 16:20 11/13/17 16:20 - Notes Notes: PHYSICAL EXAMINATION: GENERAL: Well-appearing, well-nourished and in no acute distress. HEAD: Atraumatic, normocephalic. EYES: Pupils equal round and reactive to light, extraocular movements intact, conjunctiva injected on the right bulbar greater than palpebral region. The patient had both lids everted with no evidence for foreign body. The contact lens is not currently in the eye. The patient was noted to have very minimal fluorescein uptake to the upper aspect of the cornea. I question a corneal abrasion from a torn contact. There is no gross demarcation suspicious for a corneal ulcer. Anterior chambers otherwise clear. Lower lid was everted and showed minimal conjunctival erythema. No cell or flare. Gross vision intact. After tetracaine drop patient had significant improvement in her photophobia. ENT: Nares patent but with evident coryza, oropharynx clear without exudates. Moist mucous membranes. NECK: Normal range of motion, supple without lymphadenopathy LUNGS: Breath sounds clear to auscultation bilaterally and equal. No wheezes rales or rhonchi. HEART: Regular rate and rhythm without murmurs ABDOMEN: Soft, nontender, nondistended abdomen. No guarding, no rebound. No masses appreciated. Female : deferred Musculoskeletal: Normal range of motion, no pitting or edema. No cyanosis. NEUROLOGICAL: Cranial nerves grossly intact. Normal speech, normal gait. Normal sensory, motor exams PSYCH: Normal mood, normal affect. SKIN: Warm, Dry, normal turgor, no rashes or lesions noted. Course - Re-evaluation Re-evalutation: 11/13/17 17:57 Patient was given a tetanus shot. Gross manual intraocular pressure check showed no significant abnormality. The patient was given Cipro eyedrops. No clinical suggestion for pneumonia or iritis or anterior uveitis or glaucoma. Unclear if this is irritation from a torn contact versus rubbing the eyes with associated conjunctivitis. No obvious evidence for corneal ulcer. Patient will not wear contacts until she follows up with ophthalmology for clearance. - Vital Signs Vital signs: Temp Pulse Resp BP Pulse Ox 98.7 F 91 16 122/69 99 11/13/17 16:20 11/13/17 16:20 11/13/17 16:20 11/13/17 16:20 11/13/17 16:20 Discharge - Discharge Clinical Impression: Bronchitis Conjunctivitis Qualifiers: Conjunctivitis type: other mucopurulent Laterality: right Qualified Code(s): H10.021 - Other mucopurulent conjunctivitis, right eye Corneal abrasion due to contact lens Qualifiers: Laterality: right Qualified Code(s): H18.821 - Corneal disorder due to contact lens, right eye Condition: Stable Disposition: HOME, SELF-CARE Instructions: Conjunctivitis ([facility]), Corneal Abrasion ([facility]), Eyedrop Use ([facility]), Bronchitis ([facility]), Stop Smoking ([facility]), Tetanus Immunization Given ([facility]) Additional Instructions: Drink plenty fluids. Return to the ED in case of significant vision loss, high fever, severe swelling. Do not wear contact lenses until cleared by mold machine operator or your assistant professor of forestry. Prescriptions: Hydrocodone/Acetaminophen [[place] 5-325 Tablet] 1 each PO Q4HP PRN #20 tablet PRN Reason: Azithromycin [Zithromax 250 mg Tablet] 250 mg PO ASDIR PRN #6 tablet PRN Reason: Referrals: NATASHA MAYES PA-C [Primary Care Provider] - Follow up as needed
== END 2017-11-13 18:33 | disposition home or self-care (01) ==
LOC: ER 15:57
DX: H10.021 Other mucopurulent conjunctivitis, right eye (principal); J40 Bronchitis, not specified as acute or chronic; H57.11 Ocular pain, right eye; F17.200 Nicotine dependence, unspecified, uncomplicated; Z23 Encounter for immunization
CPT/HCPCS: 99283; 90471; 90715; J3490

== ENCOUNTER 2018-11-14 05:27 | Day surgery (SDC) | payer MEDICAID ==
[2018-11-12 12:33] LABS: APPEARANCE,URINE SLIGHTLY-CLOUDY; BILIRUBIN,URINE NEGATIVE (NEGATIVE); COLOR,URINE YELLOW; GLUCOSE, URINE NEGATIVE (NEGATIVE); KETONES,URINE NEGATIVE (NEGATIVE); LEUKOCYTE ESTERASE,URINE LARGE (NEGATIVE); NITRITE,URINE POSITIVE (NEGATIVE); PROTEIN,URINE NEGATIVE (NEGATIVE); URINE SPECIFIC GRAVITY 1.026; UROBILINOGEN,URINE NEGATIVE mg/dL (<2.0)
[2018-11-12 12:45] LABS: HEMATOCRIT 38.4 % (36.0-47.0); HEMOGLOBIN 12.5 g/dL (12.0-15.5); MEAN CORPUSCULAR HEMOGLOBIN 27.2 pg (27.0-33.4); MEAN CORPUSCULAR HGB CONC 32.5 g/dL (32.0-36.0); MEAN CORPUSCULAR VOLUME 84 fl (80-97); PLATELET COUNT 318 10^3/uL (150-450); RED BLOOD COUNT 4.59 10^6/uL (3.72-5.28); RED CELL DISTRIBUTION WIDTH 14.6 % (11.5-14.0); WHITE BLOOD COUNT 7.9 10^3/uL (4.0-10.5)
[~2018-11-14 05:27] MED LIST changes: -CEFAZOLIN 2 GM/D5W RTU 2 GM/50 ML RTUPB IV PRN; -DEXAMETHASONE SOD PHOSPHATE INJ 4 MG/1 ML VIAL ONE; -GLYCOPYRROLATE INJ 0.4 MG/2 ML VIAL ONE; +LACTATED RINGERS 1000 ML IV PRN; +LIDOCAINE 0.5% INJ-PF (5 MG/ML) 50 ML SDV SUBCUT PRN; -LIDOCAINE 2% INJ-PF (20 MG/ML) 10 ML AMPUL ONE; -METOCLOPRAMIDE HCL INJ/PF 10 MG/2 ML SDV ONE; -ONDANSETRON HCL INJ/PF 4 MG/2 ML SDV ONE; -SUCCINYLCHOLINE CHLORIDE INJ 200 MG/10 ML VIAL ONE
[2018-11-14 06:15] LABS: APPEARANCE,URINE SLIGHTLY-CLOUDY; BILIRUBIN,URINE NEGATIVE (NEGATIVE); COLOR,URINE YELLOW; GLUCOSE, URINE NEGATIVE (NEGATIVE); KETONES,URINE NEGATIVE (NEGATIVE); LEUKOCYTE ESTERASE,URINE LARGE (NEGATIVE); NITRITE,URINE NEGATIVE (NEGATIVE); PROTEIN,URINE NEGATIVE (NEGATIVE); URINE SPECIFIC GRAVITY 1.017; UROBILINOGEN,URINE NEGATIVE mg/dL (<2.0)
[2018-11-14] MEDS ORDERED: ONDANSETRON HCL INJ/PF 4 MG/2 ML SDV ONE (06:50)
[2018-11-14] MEDS ORDERED: PROPOFOL INJ 200 MG/20 ML VIAL IV ONE (06:50)
[2018-11-14] MEDS ORDERED: FENTANYL CITRATE INJ/PF 100 MCG/2 ML AMPUL ONE ×3 (06:50→07:42)
[2018-11-14] MEDS ORDERED: MIDAZOLAM 2 MG/2 ML INJ ONE (06:50)
[2018-11-14] MEDS ORDERED: ONDANSETRON HCL INJ/PF 4 MG/2 ML SDV IV PRN (07:29)
[2018-11-14] MEDS ORDERED: DIPHENHYDRAMINE HCL 50 MG/ML VIAL IV PRN (07:29)
[2018-11-14] MEDS ORDERED: OXYCODONE-ACETAMINOPHEN 5-325 MG TABLET PO PRN ×2 (07:29)
[2018-11-14] MEDS ORDERED: MEPERIDINE HCL/PF INJ 25 MG/1 ML DISP.SYRIN IV PRN (07:29)
[2018-11-14] MEDS ORDERED: PROMETHAZINE HCL INJ 25 MG/1 ML VIAL IV PRN ×2 (07:29)
[2018-11-14] MEDS ORDERED: FENTANYL CITRATE INJ/PF 100 MCG/2 ML AMPUL IV PRN ×3 (07:29)
[2018-11-14] MEDS ORDERED: ACETAMINOPHEN 1,000 MG/100 ML RTUPB IV ONE (07:42)
[2018-11-14] MEDS ORDERED: ONDANSETRON HCL 8 MG TABLET PO PRN (08:07)
[2018-11-14] MEDS ORDERED: IBUPROFEN 800 MG TABLET ONE (08:34)
[2018-11-14] MEDS ORDERED: DIPHENHYDRAMINE HCL 25 MG CAPSULE ONE (08:42)
--- NOTE | 2018-11-14 08:50 | OPERATIVE REPORT E ---
Operative Report NAME: SHARIF AARON : 1985 AGE: 32Y DATE OF SURGERY: 11/14/2018 ROOM: PREOPERATIVE DIAGNOSIS: DYSFUNCTIONAL UTERINE BLEEDING. POSTOPERATIVE DIAGNOSIS: DYSFUNCTIONAL UTERINE BLEEDING. OPERATION: Hysteroscopy and dilation and curettage SURGEON: Hank LLOYD M.D. ANESTHESIA: Sedation. ESTIMATED BLOOD LOSS: Less than 10 mL. TISSUE REMOVED OR ALTERED: Endometrium. PROCEDURE: The patient was placed in a dorsal position, prepped and draped in normal sterile fashion. A speculum was placed and the cervix was visualized and grasped with a single-tooth tenaculum and sounded to a depth of 10 cm. The os was dilated to admit the hysteroscope. Hysteroscopy then performed with no definitive polyps being noted and a healthy endometrium was noted. The hysteroscope was removed and the sharp curettage was performed with a moderate amount of tissue being recovered. Repeat hysteroscopy was done then and it appeared that the curettage had been successful. The single tooth tenaculum was removed and the procedure terminated. Patient tolerated it well, was taken to recovery in good condition. DICTATING PHYSICIAN: Hank LLOYD M.D. [id number] Y#: [id number] ID: [id number] JOB#: [id number] ACCT: [id number] cc:Hank LLOYD M.D. >
[2018-11-14 10:08] VITALS: BP 120/80
[2018-11-14] MEDS ORDERED: IBUPROFEN 800 MG TABLET PO SCH (14:00)
== END 2018-11-14 09:35 | disposition home or self-care (01) ==
LOC: OROUT 05:27
PROVIDERS: ATTEND Obstetrics & Gynecology Gynecology
DX: N93.8 Other specified abnormal uterine and vaginal bleeding (principal); J45.909 Unspecified asthma, uncomplicated; F17.210 Nicotine dependence, cigarettes, uncomplicated; Z79.899 Other long term (current) drug therapy; Z79.51 Long term (current) use of inhaled steroids
CPT/HCPCS: 36415; 85027; 81025; 81001 ×2; 88305 ×2; 58558; J2250; J3490 ×2; J3010; J2405; J2704; J0131; 952

== ENCOUNTER 2018-11-16 17:21 | Emergency (ER) | payer MEDICAID ==
--- NOTE | 2018-11-16 18:01 | ER Document Report ---
ED Medical Screen (RME) - General Chief Complaint: Hip Pain Stated Complaint: RIGHT HIP PAIN Time Seen by Provider: 11/16/18 17:46 Primary Care Provider: KAIA AGUILA FNP-C [Primary Care Provider] - Follow up as needed Notes: Patient is a 32-year-old female who presents emergency department with a chief complaint of right sided pelvic pain. Her pain starts in her back and radiates to her right groin. She had a urine fibroid removed 2 days ago. It was done vaginally. Patient states that she started to feel pain yesterday and the pain has continually gotten worse. She denies any current bleeding. She said the bleeding stopped yesterday. Denies nausea, vomiting, or diarrhea. Has a past medical history of kidney stones, GERD, cholecystectomy, and a right ankle surgery. Exam: Tender right lower back and right lower abdomen. Exam limited due to patient in sitting position. I have greeted and performed a rapid initial assessment of this patient. A comprehensive ED assessment and evaluation of the patient, analysis of test results and completion of medical decision making process will be conducted by an additional ED providers. TRAVEL OUTSIDE OF THE [place] IN LAST 30 DAYS: No - Related Data Allergies/Adverse Reactions: No Known Allergies Allergy (Verified 11/16/18 17:21) Past Medical History - Past Medical History Cardiac Medical History: Reports: Hx Hypertension Denies: Hx Coronary Artery Disease, Hx Heart Attack Pulmonary Medical History: Denies: Hx Asthma, Hx Bronchitis, Hx COPD, Hx Pneumonia Neurological Medical History: Reports: Hx Migraine. Denies: Hx Cerebrovascular Accident, Hx Seizures Endocrine Medical History: Denies: Hx Diabetes Mellitus Type 1, Hx Diabetes Mellitus Type 2 Renal/ Medical History: Reports: Hx Kidney Stones, Hx Ovarian Cysts. Denies: Hx Peritoneal Dialysis Musculoskeltal Medical History: Denies Hx Arthritis Psychiatric Medical History: Denies: Hx Depression Past Surgical History: Reports: Hx Kidney (Renal Surgery) - stents for stones, Hx Tonsillectomy, Hx Urinary Tract Surgery - ureter stents - Immunizations Immunizations up to date: Yes Hx Diphtheria, Pertussis, Tetanus Vaccination: No Physical Exam - Vital signs Vitals: Temp Pulse Resp BP Pulse Ox 98.6 F 97 24 H 137/75 H 99 11/16/18 17:25 11/16/18 17:25 11/16/18 17:25 11/16/18 17:25 11/16/18 17:25 Course - Vital Signs Vital signs: Temp Pulse Resp BP Pulse Ox 98.6 F 97 24 H 137/75 H 99 11/16/18 17:25 11/16/18 17:25 11/16/18 17:25 11/16/18 17:25 11/16/18 17:25 Doctor's Discharge - Discharge Referrals: KAIA AGUILA, OFFICE HELPER CLERICAL-C [Primary Care Provider] - Follow up as needed
[2018-11-16 18:28] LABS: ABSOLUTE EOSINOPHILS # (AUTO) 0.2 10^3/uL (0.0-0.6); ABSOLUTE LYMPHOCYTES (AUTO) 2.1 10^3/uL (0.5-4.7); ABSOLUTE MONOCYTES (AUTO) 0.5 10^3/uL (0.1-1.4); ABSOLUTE NEUT (AUTO) 5.5 10^3/uL (1.7-8.2); BASOPHILS % (AUTO) 0.5 % (0-2); EOSINOPHILS % (AUTO) 2.5 % (0-6); HEMATOCRIT 38.6 % (36.0-47.0); HEMOGLOBIN 12.7 g/dL (12.0-15.5); LYMPHOCYTES % (AUTO) 25.1 % (13-45); MEAN CORPUSCULAR HEMOGLOBIN 27.3 pg (27.0-33.4); MEAN CORPUSCULAR VOLUME 83 fl (80-97); MONOCYTES % (AUTO) 5.9 % (3-13); PLATELET COUNT 285 10^3/uL (150-450); RED BLOOD COUNT 4.65 10^6/uL (3.72-5.28); RED CELL DISTRIBUTION WIDTH 14.4 % (11.5-14.0); TOTAL CELLS COUNTED % (AUTO) 100 %; WHITE BLOOD COUNT 8.3 10^3/uL (4.0-10.5)
[2018-11-16 18:45] LABS: ALANINE AMINOTRANSFERASE 22 U/L (9-52); ALBUMIN 4.2 g/dL (3.5-5.0); ALKALINE PHOSPHATASE 74 U/L (38-126); ANION GAP 11 (5-19); ASPARTATE AMINO TRANSFERASE 16 U/L (14-36); BILIRUBIN,DIRECT 0.2 mg/dL (0.0-0.4); BILIRUBIN,TOTAL 0.3 mg/dL (0.2-1.3); BLOOD UREA NITROGEN 10 mg/dL (7-20); CALCIUM 9.6 mg/dL (8.4-10.2); CARBON DIOXIDE 24 mmol/L (22-30); CHLORIDE 104 mmol/L (98-107); GLUCOSE 90 mg/dL (75-110); POTASSIUM 3.7 mmol/L (3.6-5.0); TOTAL PROTEIN 7.3 g/dL (6.3-8.2)
[2018-11-16] MEDS ORDERED: MORPHINE SULFATE 10 MG/ML INJ IV ONE (19:23)
[2018-11-16] MEDS ORDERED: NORMAL SALINE 1000 ML 1,000 ML IV ONE (19:23)
--- NOTE | 2018-11-16 19:26 | ER Document Report ---
ED General - General Chief Complaint: Hip Pain Stated Complaint: RIGHT HIP PAIN Time Seen by Provider: 11/16/18 17:46 Primary Care Provider: AKIA AGUILA FNP-C [Primary Care Provider] - Follow up as needed TRAVEL OUTSIDE OF THE [place] IN LAST 30 DAYS: No - HPI Notes: Patient is a 32-year-old female that presents to the emergency department for chief complaint of right pelvic pain. Patient had hysteroscopy with transvaginal uterine fibroid resection on 11/14/[address] Lloyd. She states that yesterday she was feeling good most of the day and then started to have increasing pain in her right lower pelvis and back yesterday evening. Today the pain has become more severe. Her vaginal bleeding stopped yesterday. She denies fevers, chills, nausea and vomiting. She states she has been passing gas since surgery but has not had a bowel movement. She reports a good appetite and normal eating. Patient took naproxen at 230 today with minimal improvement of her pain. She states yesterday ibuprofen was helping the pain significantly more than today. The pain is worse with any movement and somewhat relieved when she is sitting still. She states it has been constant and increasing since yesterday. She denies any dysuria or hematuria. Past Medical History: GERD, uterine fibroids, kidney stones Past Surgical History: Uterine fibroid resection, cholecystectomy Social History: Denies drugs alcohol and tobacco Family History: Reviewed and noncontributory for presenting illness Allergies: Reviewed, see documented allergy list. REVIEW OF SYSTEMS: CONSTITUTIONAL : No fever No chills No diaphoresis No recent illness EENT: No vision changes No congestion No sore throat CARDIOVASCULAR: No chest pain No palpitations RESPIRATORY: No shortness of breath No cough No difficulty breathing GASTROINTESTINAL: abdominal pain No nausea No vomiting No diarrhea GENITOURINARY: No dysuria No hematuria No difficulty urinating MUSCULOSKELETAL: back pain No leg pain No arm pain SKIN: No rashes No lesions LYMPHATIC: No swollen, enlarged glands. NEUROLOGICAL: No lightheadedness No headache No weakness No paresthesias PSYCHIATRIC: No anxiety No depression PHYSICAL EXAMINATION: Vital signs reviewed, nursing noted reviewed. GENERAL: Appears uncomfortable, well-nourished and in no acute distress. HEAD: Atraumatic, normocephalic. EYES: Eyes appear normal, extraocular movements intact, sclera anicteric, conjun ctiva are normal. ENT: nares patent, oropharynx clear without exudates. Moist mucous membranes. NECK: Normal range of motion, supple without lymphadenopathy LUNGS: Breath sounds clear to auscultation bilaterally and equal. No wheezes rales or rhonchi. HEART: Regular rate and rhythm without murmurs ABDOMEN: Right lower quadrant and suprapubic tenderness, soft, normoactive bowel sounds. No rebound, guarding, or rigidity. No masses appreciated. Back: Right SI tenderness and pain around right iliac crest. No midline spinal tenderness, normal range of motion of the spine. No overlying erythema or rash EXTREMITIES: Nontender, good range of motion, no pitting or edema. NEUROLOGICAL: No focal neurological deficits. Moves all extremities spontaneously Motor and sensory grossly intact on exam. PSYCH: Normal mood, normal affect. SKIN: Warm, Dry, normal turgor, no rashes or lesions noted on exposed skin - Related Data Allergies/Adverse Reactions: No Known Allergies Allergy (Verified 11/16/18 17:21) Past Medical History - Social History Smoking Status: Unknown if Ever Smoked Family History: Reviewed & Not Pertinent Patient has suicidal ideation: No Patient has homicidal ideation: No - Past Medical History Cardiac Medical History: Reports: Hx Hypertension Denies: Hx Coronary Artery Disease, Hx Heart Attack Pulmonary Medical History: Denies: Hx Asthma, Hx Bronchitis, Hx COPD, Hx Pneumonia Neurological Medical History: Reports: Hx Migraine. Denies: Hx Cerebrovascular Accident, Hx Seizures Endocrine Medical History: Denies: Hx Diabetes Mellitus Type 1, Hx Diabetes Me llitus Type 2 Renal/ Medical History: Reports: Hx Kidney Stones, Hx Ovarian Cysts. Denies: Hx Peritoneal Dialysis Musculoskeletal Medical History: Denies Hx Arthritis Psychiatric Medical History: Denies: Hx Depression Past Surgical History: Reports: Hx Kidney (Renal Surgery) - stents for stones, Hx Tonsillectomy, Hx Urinary Tract Surgery - ureter stents - Immunizations Immunizations up to date: Yes Hx Diphtheria, Pertussis, Tetanus Vaccination: No Physical Exam - Vital signs Vitals: Temp Pulse Resp BP Pulse Ox 98.6 F 97 24 H 137/75 H 99 11/16/18 17:25 11/16/18 17:25 11/16/18 17:25 11/16/18 17:25 11/16/18 17:25 Course - Re-evaluation Re-evalutation: 11/16/18 19:26 Vitals reviewed. Nursing notes reviewed. Patient will be ordered morphine for pain control. Lab work shows no leukocytosis to suggest postoperative infection. She has been afebrile. Patient also has no acute anemia to suggest active bleeding since her surgery. I discussed her presentation and lab work with Dr. Giron, ACTIVE DIRECTORY SPECIALIST who does recommend transvaginal ultrasound which has been ordered. 11/16/18 22:14 Patient reevaluated and states she has had some improvement after receiving Toradol but is still uncomfortable. Her blood work is unremarkable. Ultrasound shows right ovarian cyst versus endometrioma. Patient has a history of hemorrhagic cyst in the past and states this does feel similar to her previous cysts. Patient symptoms are likely related to hemorrhagic cyst. She has been unable to provide a urine sample but is receiving IV fluids. Will obtain urinalysis soon as available. Will give Percocet for further pain control. 11/16/18 23:44 Patient has remained hemodynamically stable. She did have further pain improvement after the Percocet. Urinalysis is positive for infection. Patient will be started on Keflex. Urine culture has been sent. Patient will follow jose manuel gray with ACTIVE DIRECTORY SPECIALIST for reevaluation. She was counseled on return precautions. She is stable and improved Laboratory 11/16/18 11/16/18 11/16/18 18:15 18:15 22:27 WBC 8.3 RBC 4.65 Hgb 12.7 Hct 38.6 MCV 83 MCH 27.3 MCHC 33.0 RDW 14.4 H Plt Count 285 Seg Neutrophils % 66.0 Lymphocytes % 25.1 Monocytes % 5.9 Eosinophils % 2.5 Basophils % 0.5 Absolute Neutrophils 5.5 Absolute Lymphocytes 2.1 Absolute Monocytes 0.5 Absolute Eosinophils 0.2 Absolute Basophils 0.0 Sodium 138.5 Potassium 3.7 Chloride 104 Carbon Dioxide 24 Anion Gap 11 BUN 10 Creatinine 0.57 Est GFR ( Amer) > 60 Est GFR (Non-Af Amer) > 60 Glucose 90 Calcium 9.6 Total Bilirubin 0.3 Direct Bilirubin 0.2 Neonat Total Bilirubin Not Reportable Neonat Direct Bilirubin Not Reportable Neonat Indirect Bili Not Reportable AST 16 ALT 22 Alkaline Phosphatase 74 Total Protein 7.3 Albumin 4.2 Urine Color YELLOW Urine Appearance SLIGHTLY-CLOUDY Urine pH 5.0 Ur Specific [place] 1.024 Urine Protein NEGATIVE Urine Glucose (UA) NEGATIVE Urine Ketones 20 H Urine Blood MODERATE H Urine Nitrite NEGATIVE Urine Bilirubin NEGATIVE Urine Urobilinogen NEGATIVE Ur Leukocyte Esterase LARGE H Urine WBC (Auto) 82 Urine RBC (Auto) 16 Squamous Epi Cells Auto 3 Urine Mucus (Auto) MOD Urine Ascorbic Acid NEGATIVE Transvaginal US 11/16/18 17:54 IMPRESSION: 4.9 x 4.3 cm complex cyst of the right ovary likely reflecting endometrioma or hemorrhagic cyst. Recommend follow-up ultrasound in 6-12 weeks, as per below. Recommendations for f/u of ovarian complex cysts (1): Endometrioma: <= 7 cm: US f/u 6-12 wks. If not surgically resected, US f/u annually. >7 cm: Consider MR w/IVC or surgical evaluation. If not surgically resected, US f/u annually. Dermoid: <= 5 cm: MR w/IV contrast. If not surgically resected, US f/u annually. >5 cm: Surgical evaluation. If not surgically resected, MR w/IVC; then US f/u annually Indeterminate cyst - multiple thin <=3 mm septations: Any size in any age: Consider surgical evaluation. Indeterminate cyst - non-hyperechoic nodule w/o blood flow: Any size in any age: Consider MR w/IVC or surgical evaluation. Indeterminate cyst - other, not classic for but suggestive of hemorrhagic cyst, endometrioma or dermoid: Pre-menopause: <= 7 cm: US f/u 6-12 weeks. If unchanged, continue f/u with US or consider MR w/IVC. If these do not confirm endometrioma or dermoid, consider surgical evaluation. >7 cm: Consider MR w/IVC or surgical evaluation. Post-menopause (>=1 year from last menstrual period): Any size: Consider surgical evaluation. Cyst worrisome for malignancy (thick, irregular >=3 mm septations or nodule with blood flow): Any size in any age: Consider surgical evaluation. (1) Recommendations based upon the 2010 SRU Consensus Conference Statement on the Management of Asymptomatic Ovarian and Other Adnexal Cysts Imaged at US: Radiology. 2009;256(3):832-44 copyright 2011 [employer]- All Rights Reserved at discharge. - Vital Signs Vital signs: Temp Pulse Resp BP Pulse Ox 98.6 F 97 24 H 137/75 H 99 11/16/18 17:25 11/16/18 17:25 11/16/18 17:25 11/16/18 17:25 11/16/18 17:25 - Laboratory Result Diagrams: 11/16/18 18:15 11/16/18 18:15 Laboratory results interpreted by me: 11/16/18 11/16/18 18:15 22:27 RDW 14.4 H Urine Ketones 20 H Urine Blood MODERATE H Ur Leukocyte Esterase LARGE H Discharge - Discharge Clinical Impression: Right ovarian cyst Urinary tract infection Qualifiers: Urinary tract infection type: acute cystitis Hematuria presence: with hematuria Qualified Code(s): N30.01 - Acute cystitis with hematuria Condition: Stable Disposition: HOME, SELF-CARE Instructions: Urinary Tract Infection ([facility]), Cephalexin ([facility]) Additional Instructions: Please return to the emergency department if you have any worsening, or concern of your symptoms. Please return to the emergency department if you develop chest pain, difficulty breathing, severe abdominal pain, or ongoing vomiting. Please follow-up with your primary care physician in 2-3 days and any other recommended physicians. If prescribed, take all medications as directed. If you have any questions or concerns do not hesitate to return the emergency department for evaluation. The cyst on your right ovary was recommended for repeat ultrasound in 6 to 12 weeks to reevaluate it, please call your ACTIVE DIRECTORY SPECIALIST to arrange this ultrasound Prescriptions: Cephalexin Monohydrate [Keflex 500 mg Capsule] 500 mg PO BID 7 Days capsule Referrals: LEO LLOYD MD [ACTIVE STAFF] - Follow up in 3-5 days KAIA AGUILA FNP-C [Primary Care Provider] - Follow up as needed
[2018-11-16] MEDS ORDERED: KETOROLAC TROMETHAMINE INJ/PF 30 MG/1 ML SDV IV ONE (20:31)
--- NOTE | 2018-11-16 21:59 | RADIOLOGY REPORT (SQ) ---
EXAM DESCRIPTION: US PELVIS TRANSVAGINAL COMPLETED DATE/TME: 11/16/2018 17:54 CLINICAL HISTORY: 32 years, Female, right pelvic pain COMPARISON: None. TECHNIQUE: Transvaginal sonographic images of the pelvis LIMITATIONS: None. FINDINGS: The uterus measures 9.1 x 5.1 x 5.9 cm. The myometrium is homogenous. Endometrium measures 7 mm in thickness. The right ovary measures 5.7 x 5.1 x 5.5 cm, the left 4.3 x 2.3 x 2.7 cm. Arterial and venous flow to both ovaries. 4.9 x 4.3 x 4.1 cm cyst of the right ovary with low-level internal echoes. This likely reflects hemorrhagic cyst or endometrioma. No free fluid IMPRESSION: 4.9 x 4.3 cm complex cyst of the right ovary likely reflecting endometrioma or hemorrhagic cyst. Recommend follow-up ultrasound in 6-12 weeks, as per below. Recommendations for f/u of ovarian complex cysts (1): Endometrioma: <= 7 cm: US f/u 6-12 wks. If not surgically resected, US f/u annually. >7 cm: Consider MR w/IVC or surgical evaluation. If not surgically resected, US f/u annually. Dermoid: <= 5 cm: MR w/IV contrast. If not surgically resected, US f/u annually. >5 cm: Surgical evaluation. If not surgically resected, MR w/IVC; then US f/u annually Indeterminate cyst - multiple thin <=3 mm septations: Any size in any age: Consider surgical evaluation. Indeterminate cyst - non-hyperechoic nodule w/o blood flow: Any size in any age: Consider MR w/IVC or surgical evaluation. Indeterminate cyst - other, not classic for but suggestive of hemorrhagic cyst, endometrioma or dermoid: Pre-menopause: <= 7 cm: US f/u 6-12 weeks. If unchanged, continue f/u with US or consider MR w/IVC. If these do not confirm endometrioma or dermoid, consider surgical evaluation. >7 cm: Consider MR w/IVC or surgical evaluation. Post-menopause (>=1 year from last menstrual period): Any size: Consider surgical evaluation. Cyst worrisome for malignancy (thick, irregular >=3 mm septations or nodule with blood flow): Any size in any age: Consider surgical evaluation. (1) Recommendations based upon the 2010 SRU Consensus Conference Statement on the Management of Asymptomatic Ovarian and Other Adnexal Cysts Imaged at US: Radiology. 2009;256(3):94-21 copyright 2011 [employer]- All Rights Reserved
[2018-11-16] MEDS ORDERED: OXYCODONE-ACETAMINOPHEN 5-325 MG TABLET PO ONE (22:13)
[2018-11-16 22:57] LABS: APPEARANCE,URINE SLIGHTLY-CLOUDY; BILIRUBIN,URINE NEGATIVE (NEGATIVE); COLOR,URINE YELLOW; GLUCOSE, URINE NEGATIVE (NEGATIVE); KETONES,URINE 20 mg/dL (NEGATIVE); LEUKOCYTE ESTERASE,URINE LARGE (NEGATIVE); NITRITE,URINE NEGATIVE (NEGATIVE); PROTEIN,URINE NEGATIVE (NEGATIVE); URINE SPECIFIC GRAVITY 1.024; UROBILINOGEN,URINE NEGATIVE mg/dL (<2.0)
[2018-11-16] MEDS ORDERED: CEPHALEXIN 500 MG CAPSULE PO ONE (23:41)
[2018-11-17 00:12] VITALS: BP 140/81
== END 2018-11-17 00:37 | disposition home or self-care (01) ==
LOC: ER 17:21
DX: N83.201 Unspecified ovarian cyst, right side (principal); N30.01 Acute cystitis with hematuria; R10.2 Pelvic and perineal pain; M54.9 Dorsalgia, unspecified; R10.813 Right lower quadrant abdominal tenderness; I10 Essential (primary) hypertension; Z87.442 Personal history of urinary calculi; Z98.890 Other specified postprocedural states; Z87.42 Personal history of other diseases of the female genital tract; Z90.49 Acquired absence of other specified parts of digestive tract
CPT/HCPCS: 99284; 96361; 96374; 36415; 85025; 80053; 81001; 76830; 93976; J1885; J7030

== ENCOUNTER 2019-02-17 08:41 | Day surgery (SDC) | payer MEDICAID ==
[2019-02-05 09:35] LABS: APPEARANCE,URINE CLOUDY; BILIRUBIN,URINE NEGATIVE (NEGATIVE); COLOR,URINE YELLOW; GLUCOSE, URINE NEGATIVE (NEGATIVE); KETONES,URINE NEGATIVE (NEGATIVE); LEUKOCYTE ESTERASE,URINE LARGE (NEGATIVE); NITRITE,URINE NEGATIVE (NEGATIVE); PROTEIN,URINE NEGATIVE (NEGATIVE); URINE SPECIFIC GRAVITY 1.028; UROBILINOGEN,URINE NEGATIVE mg/dL (<2.0)
[2019-02-05 09:41] LABS: HEMATOCRIT 39.2 % (36.0-47.0); HEMOGLOBIN 12.8 g/dL (12.0-15.5); MEAN CORPUSCULAR HEMOGLOBIN 27.3 pg (27.0-33.4); MEAN CORPUSCULAR HGB CONC 32.7 g/dL (32.0-36.0); MEAN CORPUSCULAR VOLUME 83 fl (80-97); PLATELET COUNT 327 10^3/uL (150-450); RED CELL DISTRIBUTION WIDTH 14.4 % (11.5-14.0); WHITE BLOOD COUNT 9.1 10^3/uL (4.0-10.5)
[~2019-02-17 08:41] MED LIST changes: +SCOPOLAMINE HYDROBROMIDE 1.5 MG PATCH.TD72 TD PRN
[2019-02-17] MEDS ORDERED: SCOPOLAMINE HYDROBROMIDE 1.5 MG PATCH.TD72 ONE (09:01)
[2019-02-17] MEDS ORDERED: NEOSTIGMINE METHYLSULFATE 10 MG/10 ML VIAL ONE (10:07)
[2019-02-17] MEDS ORDERED: SUCCINYLCHOLINE CHLORIDE INJ 200 MG/10 ML VIAL ONE (10:07)
[2019-02-17] MEDS ORDERED: LIDOCAINE 2% INJ-PF (20 MG/ML) 2 ML AMPUL ONE (10:07)
[2019-02-17] MEDS ORDERED: ROCURONIUM BROMIDE INJ 50 MG/5 ML VIAL IV ONE (10:07)
[2019-02-17] MEDS ORDERED: GLYCOPYRROLATE 1 MG/5 ML VIAL ONE (10:07)
[2019-02-17] MEDS ORDERED: ONDANSETRON HCL INJ/PF 4 MG/2 ML SDV ONE (10:07)
[2019-02-17] MEDS ORDERED: KETOROLAC TROMETHAMINE 60 MG/2 ML SDV ONE (10:07)
[2019-02-17] MEDS ORDERED: DEXAMETHASONE SOD PHOSPHATE INJ 4 MG/1 ML VIAL ONE (10:07)
[2019-02-17] MEDS ORDERED: FENTANYL CITRATE INJ/PF 100 MCG/2 ML AMPUL ONE ×2 (10:31→11:40)
[2019-02-17] MEDS ORDERED: PROPOFOL INJ 200 MG/20 ML VIAL IV ONE (10:31)
[2019-02-17] MEDS ORDERED: MIDAZOLAM 2 MG/2 ML INJ ONE (10:31)
[2019-02-17] MEDS ORDERED: BUPIVACAINE HCL 0.25 % INJ/PF (2.5 MG/1 ML) 30 ML VIAL ONE (10:35)
[2019-02-17] MEDS ORDERED: MEPERIDINE HCL/PF INJ 25 MG/1 ML DISP.SYRIN IV PRN (11:18)
[2019-02-17] MEDS ORDERED: PROMETHAZINE HCL INJ 25 MG/1 ML VIAL IV PRN ×2 (11:18)
[2019-02-17] MEDS ORDERED: OXYCODONE-ACETAMINOPHEN 5-325 MG TABLET PO PRN ×3 (11:18→12:27)
[2019-02-17] MEDS ORDERED: DIPHENHYDRAMINE HCL 50 MG/ML VIAL IV PRN (11:18)
[2019-02-17] MEDS ORDERED: FENTANYL CITRATE INJ/PF 100 MCG/2 ML AMPUL IV PRN ×3 (11:18)
[2019-02-17] MEDS ORDERED: PROMETHAZINE HCL INJ 25 MG/1 ML VIAL ONE (11:40)
--- NOTE | 2019-02-17 11:40 | Operative Report ---
Operative Report DATE OF SURGERY: 02/17/19 PREOPERATIVE DIAGNOSIS: Pelvic pain with pelvic mass POSTOPERATIVE DIAGNOSIS: Same plus PCOS OPERATION: Diagnostic laparoscopy SURGEON: LEO LLOYD ANESTHESIA: GA TISSUE REMOVED OR ALTERED: None COMPLICATIONS: None ESTIMATED BLOOD LOSS: Negligible PROCEDURE: Patient placed in a dorsal lithotomy position prepped draped sterile fashion. A speculum was placed cervix visualized and grasped with a single-tooth tenaculum Hulka tenaculum was placed in single-tooth tenaculum was removed. Speculum was removed. The bladder was drained with straight cath. Attention was turned to the abdomen where a midline subumbilical incision was made trocar was introduced with insufflation of the abdomen introduction of the laparoscope. Uterus appeared to be slightly enlarged the left ovary was within normal limits but had multiple cyst on the right and the ovary was enlarged and had multiple cysts consistent with polycystic ovarian syndrome. Cul-de-sac was clean and there was no overt lesions noted. Both tubes were free and the fimbria were lush. Puncture was made lateral to the first point of the 5 was introduced for manipulation of the uterus tubes and ovaries. No other overt abnormalities were noted. Once were removed and then deflated and trocar sleeves removed. The umbilical incision closed with subcu 4-0 Vicryl and the puncture was closed with 4-0 Vicryl. Wound was placed over the wounds. The procedure was terminated. Patient was taken to recovery room in good condition.
[2019-02-17] MEDS ORDERED: ONDANSETRON HCL 8 MG TABLET PO PRN (12:28)
[2019-02-17] MEDS ORDERED: OXYCODONE-ACETAMINOPHEN 5-325 MG TABLET ONE (12:46)
[2019-02-17] MEDS ORDERED: IBUPROFEN 800 MG TABLET PO SCH (14:00)
[2019-02-17 15:44] VITALS: BP 113/74
== END 2019-02-17 15:05 | disposition home or self-care (01) ==
LOC: OROUT 08:41
PROVIDERS: ATTEND Obstetrics & Gynecology Gynecology
DX: N83.202 Unspecified ovarian cyst, left side (principal); E28.2 Polycystic ovarian syndrome; F17.210 Nicotine dependence, cigarettes, uncomplicated
CPT/HCPCS: 36415; 85027; 81005; 81025; 49320; J2250; J3490 ×5; J1100; J1885; J3010; J2710; J2550; J0330; J2405; J2704; 840

== ENCOUNTER 2019-04-26 00:09 | Emergency (ER) | payer MEDICAID ==
[2019-04-26] MEDS ORDERED: LIDOCAINE 4% TRANSPARENT DRESSING 5 GM KIT TP ONE (07:37)
[2019-04-26] MEDS ORDERED: LIDOCAINE 1%/EPINEPHRINE INJ 20 ML VIAL INJ PRN (07:40)
[2019-04-26] MEDS ORDERED: BACITRACIN OPH OINT 3.5 GM TP ONE (07:41)
[2019-04-26] MEDS ORDERED: LIDOCAINE 1% INJ-PF (10 MG/ML) 30 ML SDV INJ ONE (07:42)
[2019-04-26] MEDS ORDERED: IBUPROFEN 600 MG TABLET PO ONE ×2 (08:23→11:00)
--- NOTE | 2019-04-26 08:26 | ER Document Report ---
ED General - General Chief Complaint: Abscess Stated Complaint: CYST UNDER RIGHT ARM Primary Care Provider: KAIA AGUILA FNP-C [Primary Care Provider] - Follow up in 3-5 days (for 3d wound check to see if right underarm abscess needs further drainage, re-packing. can use ED for this if needed also. ) TRAVEL OUTSIDE OF THE [place] IN LAST 30 DAYS: No - HPI Notes: 33f h/o pcos but no prior h/o abscess, mrsa or other bacterial infections prsents to ed ambulatory w/ few days of swellling increasing under R underarm. no spontaneous drainage overlying skin changes. no pain or changes in breaast she's noticed. no f/c/s/vomiting. has become painful to flex at shoulder which stretches area of pressure of forearm. no h;/o cysts or other needs for i/d for any reason. no known injury or introduction of foreign material - Related Data Allergies/Adverse Reactions: No Known Allergies Allergy (Verified 11/16/18 17:21) Home Medications: Zantac. Metformin. Claritin. Naproxen. Rizartiptan Past Medical History - General Information source: Patient - Social History Smoking Status: Unknown if Ever Smoked Family History: Reviewed & Not Pertinent Patient has suicidal ideation: No Patient has homicidal ideation: No - Past Medical History Cardiac Medical History: Reports: Hx Hypertension - POST , NO LONGER ON MEDS Denies: Hx Coronary Artery Disease, Hx Heart Attack Pulmonary Medical History: Denies: Hx Asthma, Hx Bronchitis, Hx COPD, Hx Pneumonia Neurological Medical History: Reports: Hx Migraine. Denies: Hx Cerebrovascular Accident, Hx Seizures Endocrine Medical History: Denies: Hx Diabetes Mellitus Type 1, Hx Diabetes Mellitus Type 2 Renal/ Medical History: Reports: Hx Kidney Stones, Hx Ovarian Cysts. Denies: Hx Peritoneal Dialysis Musculoskeletal Medical History: Denies Hx Arthritis Psychiatric Medical History: Denies: Hx Depression Past Surgical History: Reports: Hx Kidney (Renal Surgery) - stents for stones, Hx Tonsillectomy, Hx Urinary Tract Surgery - ureter stents - Immunizations Immunizations up to date: Yes Hx Diphtheria, Pertussis, Tetanus Vaccination: No Review of Systems - Review of Systems Constitutional: No symptoms reported EENT: No symptoms reported Cardiovascular: No symptoms reported Respiratory: No symptoms reported Gastrointestinal: No symptoms reported Genitourinary: No symptoms reported Female Genitourinary: No symptoms reported Musculoskeletal: No symptoms reported. denies: Back pain, Joint pain, Joint swelling, Muscle stiffness, Neck pain Skin: No symptoms reported, Lumps - r underarm. denies: Change in color Hematologic/Lymphatic: No symptoms reported Neurological/Psychological: No symptoms reported Physical Exam - Vital signs Vitals: Temp Pulse Resp BP Pulse Ox 98.7 F 98 16 134/72 H 98 04/26/19 00:15 04/26/19 00:15 04/26/19 00:15 04/26/19 00:15 04/26/19 00:15 Interpretation: Normal - Notes Notes: 1cm x 3 cm fluctuant and hard/indurated area under ++ttp R underam pocket. no overlying warmth/color changes. no spont drainge w/ mild pressure application. on bedside u/s w/ linear array superficial anechoic irregular ovoid rim enhancing area dimensions just under surface of skin R underarem: +1 cm deep and ~2.5 cm length . no enlarged LN. this fluid filled sturcure c/w abscess not LN. - General General appearance: Appears well, Alert - HEENT Head: Normocephalic, Atraumatic Eyes: Normal Pupils: PERRL - Respiratory Respiratory status: No respiratory distress Chest status: Nontender Breath sounds: Normal Chest palpation: Normal - Cardiovascular Rhythm: Regular Heart sounds: Normal auscultation Murmur: No - Abdominal Inspection: Normal Distension: No distension Bowel sounds: Normal Tenderness: Nontender Organomegaly: No organomegaly - Back Back: Normal, Nontender - Extremities General upper extremity: Normal inspection, Nontender, Normal color, Normal ROM, Normal temperature General lower extremity: Normal inspection, Nontender, Normal color, Normal ROM, Normal temperature, Normal weight bearing. No: Karena's sign - Neurological Neuro grossly intact: Yes Cognition: Normal Orientation: AAOx4 Wharton Coma Scale Eye Opening: Spontaneous Esmer Coma Scale Verbal: Oriented Esmer Coma Scale Motor: Obeys Commands Esmer Coma Scale Total: 15 Speech: Normal Motor strength normal: LUE, RUE, LLE, RLE Sensory: Normal - Psychological Associated symptoms: Normal affect, Normal mood - Skin Skin Temperature: Warm Skin Moisture: Dry Skin Color: Normal Course - Re-evaluation Re-evalutation: 04/27/19 00:54 gave 0.25 mcg/kg dose im ketamine since very anxious about procedure and in pain. also first appplied LMX cream to area and waiting 30 min before procedure per below descritp - Vital Signs Vital signs: Temp Pulse Resp BP Pulse Ox 98.4 F 86 16 123/70 100 04/26/19 12:57 04/26/19 12:57 04/26/19 12:57 04/26/19 12:57 04/26/19 12:57 Procedures - Incision and Drainage Right Time completed: 14:00 Anesthetic type: 1% Lidocaine w/epi - 4% lmx also beforehand if above. mL's of anesthetic: 6 Blade size: 11 I&D procedure: Betadine prep applied, Iodoform packing placed - loop technique w/ 2 <1cm incisions made either side PM Incision Method: Incision made by scalpel - performed I/d w/ lood drainage technique: pus began to drain from lateral aspect swollen area w/ infiltrastion lido w/ epi, more loculated bits of purulent material and blood expresed and two 0.5 cm incisions made at ea side abcess. introducted sterile 1/4 " iodoform strip into first, through abscess cavity after breakin up as many loculations as pt tolerated out other incision and tied loosely but w/ secure knot. Discharge - Discharge Clinical Impression: Abscess Condition: Fair Disposition: HOME, SELF-CARE Additional Instructions: Today we were able to drain some pus out of your right underarm abscess. I think this will still need to continue draining therefore needs to have the packing left in place to allow away out for the remaining pus. I am going to start you on an antibiotic please take same time every day and complete the entire course. Watch for fevers over 100.4, vomiting, redness of the skin overlying the area that spreads even after 48 hours of antibiotic. I also want you to be evaluated for a wound check on Sunday or Sunday of this coming week to ensure that you do not need to be repacked or any more pus needs to be drained. In the meantime you can use sitz bath's which is soaking Epsom salt in clean bath container and letting the area soak. Try to keep the packing in place until you are reevaluated. You can shower as usual and then just keep a clean dry dressing over the area otherwise to prevent it from getting dirty. Prescriptions: Oxycodone HCl [Oxy-Ir 5 mg Tablet] 5 mg PO Q4HP PRN 1 Days #3 tab PRN Reason: Pain Scale Of 5 Oxycodone HCl [Oxy-Ir 5 mg Tablet] 5 mg PO Q4HP PRN #6 tab PRN Reason: For Pain Scale 4-5 Ibuprofen [Ibu-200] 600 mg PO Q6HP PRN #30 tablet PRN Reason: Sulfamethoxazole/Trimethoprim [Bactrim Ds Tablet] 1 tab PO BID 7 Days #14 tablet Forms: Return to Work Referrals: KAIA AGUILA, ABSENCE MANAGEMENT CONSULTANT-C [Primary Care Provider] - Follow up in 3-5 days (for 3d wound check to see if right underarm abscess needs further drainage, re-packing. can use ED for this if needed also. )
[2019-04-26] MEDS ORDERED: KETAMINE HCL INJ 500 MG/10 ML VIAL IV ONE ×3 (09:58→11:57)
[2019-04-26] MEDS ORDERED: BACITRACIN ZINC OINTMENT 15 GM TP ONE (10:30)
[2019-04-26] MEDS ORDERED: KETAMINE HCL INJ 500 MG/10 ML VIAL IM ONE (10:55)
[2019-04-26 12:58] VITALS: BP 123/70
== END 2019-04-26 13:06 | disposition home or self-care (01) ==
LOC: ER 00:09
DX: L02.91 Cutaneous abscess, unspecified (principal); G43.909 Migraine, unspecified, not intractable, without status migrainosus; Z79.899 Other long term (current) drug therapy; Z79.84 Long term (current) use of oral hypoglycemic drugs; Z79.1 Long term (current) use of non-steroidal anti-inflammatories (NSAID)
CPT/HCPCS: 99283; 96372; 96374; 10060; A6266; J3490 ×6

== ENCOUNTER 2019-04-30 18:05 | Emergency (ER) | payer MEDICAID ==
--- NOTE | 2019-04-30 18:54 | ER Document Report ---
ED Medical Screen (RME) - General Chief Complaint: Wound Recheck Stated Complaint: WOUND CHECK Time Seen by Provider: 04/30/19 18:46 Primary Care Provider: KAIA AGUILA FNP-C [Primary Care Provider] - Follow up as needed Mode of Arrival: Ambulatory Information source: Patient Notes: Patient presents to the emergency department with reports that she is here for a wound recheck. She reports she received a I&D under her right arm on Sunday. She reports area still hurts. She is not sure if the swelling has decreased or any more erythema because she has not looked at it. No complaints of fever. I have greeted and performed a rapid initial assessment of this patient. A comprehensive ED assessment and evaluation of the patient, analysis of test results and completion of the medical decision making process will be conducted by additional ED providers. TRAVEL OUTSIDE OF THE [place] IN LAST 30 DAYS: No - Related Data Allergies/Adverse Reactions: No Known Allergies Allergy (Verified 04/30/19 18:46) Past Medical History - Past Medical History Cardiac Medical History: Reports: Hx Hypertension - POST , NO LONGER ON MEDS Denies: Hx Coronary Artery Disease, Hx Heart Attack Pulmonary Medical History: Denies: Hx Asthma, Hx Bronchitis, Hx COPD, Hx Pneumonia Neurological Medical History: Reports: Hx Migraine. Denies: Hx Cerebrovascular Accident, Hx Seizures Endocrine Medical History: Denies: Hx Diabetes Mellitus Type 1, Hx Diabetes Mellitus Type 2 Renal/ Medical History: Reports: Hx Kidney Stones, Hx Ovarian Cysts. Denies: Hx Peritoneal Dialysis Musculoskeltal Medical History: Denies Hx Arthritis Psychiatric Medical History: Denies: Hx Depression Past Surgical History: Reports: Hx Kidney (Renal Surgery) - stents for stones, Hx Tonsillectomy, Hx Urinary Tract Surgery - ureter stents - Immunizations Immunizations up to date: Yes Hx Diphtheria, Pertussis, Tetanus Vaccination: No Physical Exam - Vital signs Vitals: Temp Pulse Resp BP Pulse Ox 98.7 F 97 20 122/66 100 04/30/19 18:04/30/19 18:04/30/19 18:04/30/19 18:04/30/19 18:09 Course - Vital Signs Vital signs: Temp Pulse Resp BP Pulse Ox 98.7 F 97 20 122/66 100 04/30/19 18:04/30/19 18:04/30/19 18:09 04/30/19 18:09 04/30/19 18:09 Doctor's Discharge - Discharge Referrals: KAIA AGUILA, [employer]-C [Primary Care Provider] - Follow up as needed
--- NOTE | 2019-04-30 19:27 | ER Document Report ---
ED General - General Chief Complaint: Wound Recheck Stated Complaint: WOUND CHECK Time Seen by Provider: 04/30/19 18:46 Primary Care Provider: KAIA AGUILA FNP-C [Primary Care Provider] - Follow up as needed Mode of Arrival: Ambulatory TRAVEL OUTSIDE OF THE [place] IN LAST 30 DAYS: No - HPI Notes: Is 3 days since I saw her and drained her underarm abscess the packing is remained in place and she is taken a bath every other day she says she initially my first dressing saw pus on the string as well as dressing and then over the next few days did not see as much and today saw more pus she says the pain overall is gotten a lot better in the last 2 days she did have to take some oxycodone on the first day or 2 but has not needed any in the last day. She denies fever chills sweats any nausea vomiting she says she has not had any large gush of pus no weakness tingling or clumsiness of the extremity - Related Data Allergies/Adverse Reactions: No Known Allergies Allergy (Verified 04/30/19 18:46) Home Medications: antibiotics. Past Medical History - General Information source: Patient - Social History Smoking Status: Current Every Day Smoker Chew tobacco use (# tins/day): No Frequency of alcohol use: Occasional Family History: Reviewed & Not Pertinent Patient has suicidal ideation: No Patient has homicidal ideation: No - Past Medical History Cardiac Medical History: Reports: Hx Hypertension - POST , NO LONGER ON MEDS Denies: Hx Coronary Artery Disease, Hx Heart Attack Pulmonary Medical History: Denies: Hx Asthma, Hx Bronchitis, Hx COPD, Hx Pneumonia Neurological Medical History: Reports: Hx Migraine. Denies: Hx Cerebrovascular Accident, Hx Seizures Endocrine Medical History: Denies: Hx Diabetes Mellitus Type 1, Hx Diabetes Mellitus Type 2 Renal/ Medical History: Reports: Hx Kidney Stones, Hx Ovarian Cysts. Denies: Hx Peritoneal Dialysis Musculoskeletal Medical History: Denies Hx Arthritis Psychiatric Medical History: Denies: Hx Depression Past Surgical History: Reports: Hx Kidney (Renal Surgery) - stents for stones, Hx Tonsillectomy, Hx Urinary Tract Surgery - ureter stents - Immunizations Immunizations up to date: Yes Hx Diphtheria, Pertussis, Tetanus Vaccination: No Physical Exam - Vital signs Vitals: Temp Pulse Resp BP Pulse Ox 98.7 F 97 20 122/66 100 04/30/19 18:09 04/30/19 18:09 04/30/19 18:09 04/30/19 18:09 04/30/19 18:09 Course - Re-evaluation Re-evalutation: 04/30/19 23:26 Ordered patient some IV fentanyl and 0.25 mix per kick IM ketamine prior to signing out the patient to Abund[facility] Mireles who will be exchanging the sterile iodoform packing to keep the excisions open and allowing continued drainage. He will see if he is able to break up any additional - Vital Signs Vital signs: Temp Pulse Resp BP Pulse Ox 98.3 F 88 20 121/61 99 04/30/19 19:54 04/30/19 19:54 04/30/19 19:54 04/30/19 19:54 04/30/19 19:54 Discharge - Discharge Clinical Impression: Abscess after procedure Condition: Good Disposition: HOME, SELF-CARE Additional Instructions: Today I am reassured that your abscess looks like it is continuing to drain spontaneously with the packing in place. We gave you some medication and then did change the packing out so it will stay open and tried to break up some of the loculations that we can still felt the surface. Please continue to take your twice a day antibiotic for the next 4 days. Try to do sits baths which is cup of Epson salt soak in a clean bath and let your underarm be submerged at least once a day you can wash as usual and try to keep the iodoform secure and in place. Again I like you to be reevaluated after 5 days this time to see if it still needs drainage. Again if you develop redness on the skin or fever chills sweats vomiting or significant pressure or swelling in the extremity then I would like you to be seen before then. Referrals: KAIA AGUILA, JOSE MIGUEL-C [Primary Care Provider] - Follow up as needed
[2019-04-30 19:56] VITALS: BP 121/61
[2019-04-30] MEDS ORDERED: FENTANYL CITRATE INJ/PF 100 MCG/2 ML AMPUL IM ONE (21:25)
[2019-04-30] MEDS ORDERED: KETAMINE HCL INJ 500 MG/10 ML VIAL IM ONE (21:37)
[2019-04-30] MEDS ORDERED: LIDOCAINE 1%/EPINEPHRINE INJ 20 ML VIAL INJ ONE (21:38)
== END 2019-04-30 23:54 | disposition home or self-care (01) ==
LOC: ER 18:05
DX: L02.419 Cutaneous abscess of limb, unspecified (principal); Z98.890 Other specified postprocedural states; Z79.899 Other long term (current) drug therapy; F17.200 Nicotine dependence, unspecified, uncomplicated; I10 Essential (primary) hypertension
CPT/HCPCS: 99282; 96372; 96374; A6266; J3010; J3490 ×2

== ENCOUNTER 2019-05-14 23:22 | Emergency (ER) | payer MEDICAID ==
[2019-05-15 00:55] LABS: ABSOLUTE EOSINOPHILS # (AUTO) 0.2 10^3/uL (0.0-0.6); ABSOLUTE LYMPHOCYTES (AUTO) 2.2 10^3/uL (0.5-4.7); ABSOLUTE MONOCYTES (AUTO) 0.6 10^3/uL (0.1-1.4); ABSOLUTE NEUT (AUTO) 3.9 10^3/uL (1.7-8.2); BASOPHILS % (AUTO) 0.4 % (0-2); EOSINOPHILS % (AUTO) 2.9 % (0-6); HEMATOCRIT 37.2 % (36.0-47.0); HEMOGLOBIN 12.4 g/dL (12.0-15.5); LYMPHOCYTES % (AUTO) 31.8 % (13-45); MEAN CORPUSCULAR HEMOGLOBIN 27.2 pg (27.0-33.4); MEAN CORPUSCULAR HGB CONC 33.3 g/dL (32.0-36.0); MEAN CORPUSCULAR VOLUME 82 fl (80-97); MONOCYTES % (AUTO) 9.1 % (3-13); PLATELET COUNT 286 10^3/uL (150-450); RED BLOOD COUNT 4.55 10^6/uL (3.72-5.28); RED CELL DISTRIBUTION WIDTH 14.8 % (11.5-14.0); SEGMENTED NEUTROPHILS % (AUTO) 55.8 % (42-78); TOTAL CELLS COUNTED % (AUTO) 100 %; WHITE BLOOD COUNT 6.9 10^3/uL (4.0-10.5)
[2019-05-15 01:01] LABS: APPEARANCE,URINE SLIGHTLY-CLOUDY; BILIRUBIN,URINE NEGATIVE (NEGATIVE); COLOR,URINE YELLOW; GLUCOSE, URINE NEGATIVE (NEGATIVE); KETONES,URINE NEGATIVE (NEGATIVE); LEUKOCYTE ESTERASE,URINE MODERATE (NEGATIVE); NITRITE,URINE NEGATIVE (NEGATIVE); PROTEIN,URINE 30 mg/dL (NEGATIVE); URINE SPECIFIC GRAVITY 1.025; UROBILINOGEN,URINE NEGATIVE mg/dL (<2.0)
[2019-05-15 01:12] LABS: ALBUMIN 4.4 g/dL (3.5-5.0); ALKALINE PHOSPHATASE 75 U/L (38-126); ANION GAP 8 (5-19); ASPARTATE AMINO TRANSFERASE 20 U/L (14-36); BILIRUBIN,TOTAL 0.2 mg/dL (0.2-1.3); BLOOD UREA NITROGEN 11 mg/dL (7-20); CALCIUM 9.8 mg/dL (8.4-10.2); CARBON DIOXIDE 29 mmol/L (22-30); CHLORIDE 104 mmol/L (98-107); GLUCOSE 88 mg/dL (75-110); POTASSIUM 3.4 mmol/L (3.6-5.0); TOTAL PROTEIN 7.7 g/dL (6.3-8.2)
[2019-05-15] MEDS ORDERED: PROMETHAZINE HCL 25 MG TABLET PO ONE (02:32)
[2019-05-15] MEDS ORDERED: OXYCODONE-ACETAMINOPHEN 5-325 MG TABLET PO ONE (02:32)
[2019-05-15] MEDS ORDERED: CEPHALEXIN 500 MG CAPSULE PO ONE (02:32)
--- NOTE | 2019-05-15 02:35 | ER Document Report ---
HPI - HPI Time Seen by Provider: 05/15/19 02:08 Pain Level: 3 Context: Patient is a 33-year-old female that comes emergency department for chief complaint of crampy lower abdominal pain in the center of her lower abdomen that radiates around to the sides and around to the back. She reports some vague nausea but denies vomiting or fever. She denies vaginal discharge or bleeding. She does have some urinary symptoms and states she feels like she has a bladder infection. She states she thought she might be having ovarian cysts but the more she thinks about it the more she states this is not consistent with it. She has PCOS. LMP within the past month. She denies concerns about STD. She has had a cholecystectomy. - GASTROINTESTINAL Gastrointestinal: REPORTS: Abdominal Pain - REPRODUCTIVE Reproductive: DENIES: : Past Medical History - General Information source: Patient - Social History Smoking Status: Current Every Day Smoker Frequency of alcohol use: None Drug Abuse: None Lives with: Family Family History: Reviewed & Not Pertinent Patient has suicidal ideation: No Patient has homicidal ideation: No - Past Medical History Cardiac Medical History: Reports: Hx Hypertension - POST , NO LONGER ON MEDS Denies: Hx Coronary Artery Disease, Hx Heart Attack Pulmonary Medical History: Denies: Hx Asthma, Hx Bronchitis, Hx COPD, Hx Pneumonia Neurological Medical History: Reports: Hx Migraine. Denies: Hx Cerebrovascular Accident, Hx Seizures Endocrine Medical History: Denies: Hx Diabetes Mellitus Type 1, Hx Diabetes Mellitus Type 2 Renal/ Medical History: Reports: Hx Kidney Stones, Hx Ovarian Cysts. Denies: Hx Peritoneal Dialysis Musculoskeletal Medical History: Denies Hx Arthritis Psychiatric Medical History: Denies: Hx Depression Past Surgical History: Reports: Hx Kidney (Renal Surgery) - stents for stones, Hx Tonsillectomy, Hx Urinary Tract Surgery - ureter stents - Immunizations Immunizations up to date: Yes Hx Diphtheria, Pertussis, Tetanus Vaccination: No Vertical Provider Document - CONSTITUTIONAL General Appearance: WD/WN, No Apparent Distress - INFECTION CONTROL TRAVEL OUTSIDE OF THE [place] IN LAST 30 DAYS: No - HEENT HEENT: Atraumatic, Normal ENT Exam, Normocephalic - NECK Neck: Normal Inspection - RESPIRATORY Respiratory: Breath Sounds Normal, No Respiratory Distress - CARDIOVASCULAR Cardiovascular: Regular Rate, Regular Rhythm - GI/ABDOMEN Gastrointestinal: Abdomen Soft. negative: Abdomen Non-Tender - Suprapubic tenderness, remaining abdomen is completely benign without guarding, rigidity, or distention. - BACK Back: Normal Inspection - MUSCULOSKELETAL/EXTREMETIES Musculoskeletal/Extremeties: MAEW, FROM, Non-Tender - NEURO Level of Consciousness: Awake, Alert, Appropriate Motor/Sensory: No Motor Deficit, No Sensory Deficit - DERM Integumentary: Warm, Dry, No Rash Course - Re-evaluation Re-evalutation: Patient has suprapubic tenderness on exam. She is otherwise very well- appearing. No CVA tenderness, unremarkable vital signs. CBC, chemistry unremarkable. Urinalysis does indicate infection. test negative. Discussed with patient. She is telling me she is believes she has a bladder infection. This is consistent with her evaluation. I did recommend pelvic exam and I offered an ultrasound because of her history of ovarian cysts but she declined both. Treating for UTI, discussed follow-up and return precautions. Patient states understanding and agreement. - Vital Signs Vital signs: Temp Pulse Resp BP Pulse Ox 98.2 F 96 16 139/67 H 100 05/14/19 23:26 05/14/19 23:26 05/14/19 23:26 05/14/19 23:26 05/14/19 23:26 - Laboratory Result Diagrams: 05/15/19 00:40 05/15/19 00:40 Laboratory results interpreted by me: 05/15/19 05/15/19 05/15/19 00:40 00:40 00:40 RDW 14.8 H Potassium 3.4 L Urine Protein 30 H Urine Blood SMALL H Ur Leukocyte Esterase MODERATE H Discharge - Discharge Clinical Impression: Dysuria, Lower abdominal pain Urinary tract infection Qualifiers: Urinary tract infection type: site unspecified Hematuria presence: without hematuria Qualified Code(s): N39.0 - Urinary tract infection, site not specified Condition: Stable Disposition: HOME, SELF-CARE Additional Instructions: The work-up indicates a bladder infection. Take antibiotics to completion. After completion of antibiotics take the Diflucan antifungal. Follow-up with primary care for additional management. Return if you worsen including fever, severe worsening pain, vomiting, or any other concerning symptoms. Prescriptions: Fluconazole [Diflucan] 150 mg PO ONCE PRN #1 tablet PRN Reason: Cephalexin Monohydrate [Keflex 500 mg Capsule] 500 mg PO BID 5 Days #10 capsule Forms: Return to Work Referrals: GILBERT,STORMY, LEAD HANDLER-C [Primary Care Provider] - Follow up as needed
[2019-05-15 02:59] VITALS: BP 106/67
== END 2019-05-15 02:59 | disposition home or self-care (01) ==
LOC: ER 23:22
DX: N39.0 Urinary tract infection, site not specified (principal); F17.200 Nicotine dependence, unspecified, uncomplicated; I10 Essential (primary) hypertension
CPT/HCPCS: 99284; 36415; 83690; 85025; 81025; 80053; 81001; J3490

== ENCOUNTER 2019-08-03 12:20 | Emergency (ER) | payer MEDICAID ==
[2019-08-03] MEDS ORDERED: DIPH/PERTUSS(ACELL)/TETANUS VAC/PF 0.5 ML SYR (>=10YO) IM ONE (12:42)
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
[2019-08-03] MEDS ORDERED: LIDOCAINE 1% INJ-PF (10 MG/ML) 30 ML SDV INJ ONE (17:40)
[2019-08-03] MEDS ORDERED: LIDOCAINE 4% CREAM 5 GM TUBE TP ONE (17:40)
[2019-08-03] MEDS ORDERED: HYDROCODONE/ACETAMINOPHEN 5-325 MG TABLET PO ONE (17:40)
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
[2019-08-03] MEDS ORDERED: HYDROCODONE/ACETAMINOPHEN 5-325 MG (6 TAB/ER DISP) PO PRN (19:15)
[2019-08-03] MEDS ORDERED: CEPHALEXIN 500 MG CAPSULE PO ONE (19:15)
[2019-08-03 19:42] VITALS: BP 134/69
== END 2019-08-03 19:42 | disposition home or self-care (01) ==
LOC: ER 12:20
DX: S01.511A Laceration without foreign body of lip, initial encounter (principal); W20.8XXA Other cause of strike by thrown, projected or falling object, initial encounter; F17.200 Nicotine dependence, unspecified, uncomplicated; J45.909 Unspecified asthma, uncomplicated; Z23 Encounter for immunization
CPT/HCPCS: 99282; 90471; 90715; 12011; J3490 ×2

== ENCOUNTER 2019-08-08 17:40 | Emergency (ER) | payer MEDICAID ==
[2019-08-08 17:47] VITALS: BP 140/80
--- NOTE | 2019-08-08 18:21 | ER Document Report ---
ED General - General Chief Complaint: Suture Removal Stated Complaint: SUTURE REMOVAL Primary Care Provider: KAIA AGUILA FNP-C [Primary Care Provider] - Follow up as needed Notes: Patient is a 33-year-old -[place] female who reports here today for suture removal from the right lower lip. She denies any issues with the wound site. States is healed well. No redness, swelling or drainage. No fevers, nausea, vomiting with diarrhea, chills or night sweats. TRAVEL OUTSIDE OF THE [place] IN LAST 30 DAYS: No - Related Data Allergies/Adverse Reactions: No Known Allergies Allergy (Verified 08/03/19 12:35) Past Medical History - Social History Smoking Status: Unknown if Ever Smoked Family History: Reviewed & Not Pertinent Patient has suicidal ideation: No Patient has homicidal ideation: No - Past Medical History Cardiac Medical History: Reports: Hx Hypertension - POST , NO LONGER ON MEDS Denies: Hx Coronary Artery Disease, Hx Heart Attack Pulmonary Medical History: Reports: Hx Asthma Denies: Hx Bronchitis, Hx COPD, Hx Pneumonia Neurological Medical History: Reports: Hx Migraine. Denies: Hx Cerebrovascular Accident, Hx Seizures Endocrine Medical History: Denies: Hx Diabetes Mellitus Type 1, Hx Diabetes Mellitus Type 2 Renal/ Medical History: Reports: Hx Kidney Stones, Hx Ovarian Cysts. Denies: Hx Peritoneal Dialysis Musculoskeletal Medical History: Denies Hx Arthritis Psychiatric Medical History: Denies: Hx Depression Past Surgical History: Reports: Hx Kidney (Renal Surgery) - stents for stones, Hx Tonsillectomy, Hx Urinary Tract Surgery - ureter stents - Immunizations Immunizations up to date: Yes Hx Diphtheria, Pertussis, Tetanus Vaccination: No Review of Systems - Review of Systems Skin: Other -: Yes All other systems reviewed and negative Physical Exam - Vital signs Vitals: Temp Pulse Resp BP Pulse Ox 98.8 F 98 16 140/80 H 97 08/08/19 17:46 08/08/19 17:46 08/08/19 17:46 08/08/19 17:46 08/08/19 17:46 - General General appearance: Appears well, Alert In distress: None - HEENT Mouth/Lips: Other - Small well-healing laceration of the right lower lip with 3 sutures intact. No redness, swelling or drainage. Pharynx: Normal Neck: Normal, Supple - Respiratory Respiratory status: No respiratory distress Chest status: Nontender Breath sounds: Normal Chest palpation: Normal - Cardiovascular Rhythm: Regular Heart sounds: Normal auscultation - Neurological Neuro grossly intact: Yes Cognition: Normal Orientation: AAOx4 - Psychological Associated symptoms: Normal affect, Normal mood - Skin Skin Temperature: Warm Skin Moisture: Dry Skin Color: Other - Well-appearing wound as described above Course - Re-evaluation Re-evalutation: 08/08/19 18:21 3 sutures removed successfully by nurse. Status post evaluated by me, within normal limits. Patient tolerated well. Counseled her regarding the importance of outpatient follow-up and advised she return here or any ER immediately with any new, persistent or worsening symptoms. She verbalized understood and agreed. - Vital Signs Vital signs: Temp Pulse Resp BP Pulse Ox 98.8 F 98 16 140/80 H 97 08/08/19 17:46 08/08/19 17:46 08/08/19 17:46 08/08/19 17:46 08/08/19 17:46 Discharge - Discharge Clinical Impression: Visit for suture removal Condition: Stable Disposition: HOME, SELF-CARE Instructions: Suture Removal Additional Instructions: Follow-up with your regular doctor in 2 to 3 days for reevaluation. Return here or any ER immediately with any new, persistent or worsening symptoms. Referrals: KAIA AGUILA FNP-C [Primary Care Provider] - Follow up as needed
== END 2019-08-08 18:33 | disposition home or self-care (01) ==
LOC: ER 17:40
DX: S01.511D Laceration without foreign body of lip, subsequent encounter (principal); X58.XXXD Exposure to other specified factors, subsequent encounter

== ENCOUNTER 2020-02-10 19:41 | Emergency (ER) | payer MEDICAID ==
--- NOTE | 2020-02-10 21:01 | ER Document Report ---
ED General - General Chief Complaint: Pain All Over Stated Complaint: CHILLS,BODY ACHES Time Seen by Provider: 02/10/20 20:37 Primary Care Provider: KAIA AGUILA FNP-C [Primary Care Provider] - Follow up as needed Notes: CHIEF COMPLAINT: Flulike symptoms for 24 hours HPI: 34-year-old female presenting for flulike symptoms for 24 hours. Has had body ache and fever. States she does not want a Covid test. Denies dysuria abdominal pain cough nausea vomiting shortness of breath or congestion or sore throat ROS: See HPI - all other systems were reviewed and are otherwise negative Constitutional: Positive fever Eyes: no drainage, no blurred vision ENT: no runny nose, no sore throat Cardiovascular: no chest pain Resp: no SOB, no cough GI: no vomiting, no diarrhea, no abdominal pain : no dysuria Integumentary: no rash Allergy: no hives Musculoskeletal: no extremity pain or swelling, positive myalgia Neurological: no numbness/tingling, no weakness MEDICATIONS: I agree with the patient medications as charted by the RN. ALLERGIES: I agree with the allergies as charted by the RN. PAST MEDICAL HISTORY/PAST SURGICAL HISTORY: Reviewed and agree as charted by RN. SOCIAL HISTORY: Reviewed and agree as charted by RN. FAMILY HISTORY: No significant familial comorbid conditions directly related to patient complaint EXAM: Reviewed vital signs as charted by RN. CONSTITUTIONAL: Alert and oriented and responds appropriately to questions. Well-appearing; well-nourished HEAD: Normocephalic; atraumatic EYES: PERRL; Conjunctivae clear, sclerae non-icteric ENT: normal nose; no rhinorrhea; moist mucous membranes; pharynx without lesions noted, no uvula edema or deviation, no tonsillar hypertrophy, phonation normal NECK: Supple without meningismus; non-tender; no cervical lymphadenopathy, no masses CARD: Mild tachycardia; no murmurs, no clicks, no rubs, no gallops; symmetric distal pulses RESP: Normal chest excursion without splinting or tachypnea; breath sounds clear and equal bilaterally; no wheezes, no rhonchi, no rales, pulse oximetry 97% on room air not hypoxic ABD/GI: Normal bowel sounds; non-distended; soft, non-tender, no rebound, no guarding; no palpable organomegaly or masses. BACK: The back appears normal and is non-tender to palpation, there is no CVA tenderness EXT: Normal ROM in all joints; non-tender to palpation; no cyanosis, no effusions, no edema SKIN: Normal color for age and race; warm; dry; good turgor; no acute lesions noted NEURO: Moves all extremities equally; Motor and sensory function intact PSYCH: The patient's mood and manner are appropriate. Grooming and personal hygiene are appropriate. MDM: 34-year-old female with flulike symptoms subjective fever yesterday and today with body ache. Has no congestion sore throat chest pain cough or shortness of breath to suggest strep, meningitis or pneumonia. She declines a Covid test. Will take flu test, urinalysis TRAVEL OUTSIDE OF THE [place] IN LAST 30 DAYS: No - Related Data Allergies/Adverse Reactions: No Known Allergies Allergy (Verified 12/03/19 12:46) Home Medications: Famotadine 20mg Daily, Lorazepam 0.5 mg PRn, Loratidinedaily(seasonal Allergies),ALbuterol PRn Past Medical History - Social History Smoking Status: Never Smoker Chew tobacco use (# tins/day): No Frequency of alcohol use: None Drug Abuse: None Family History: Reviewed & Not Pertinent Patient has homicidal ideation: No - Past Medical History Cardiac Medical History: Reports: Hx Hypertension - POST , NO LONGER ON MEDS Denies: Hx Coronary Artery Disease, Hx Heart Attack Pulmonary Medical History: Reports: Hx Asthma Denies: Hx Bronchitis, Hx COPD, Hx Pneumonia Neurological Medical History: Reports: Hx Migraine. Denies: Hx Cerebrovascular Accident, Hx Seizures Endocrine Medical History: Denies: Hx Diabetes Mellitus Type 1, Hx Diabetes Mellitus Type 2 Renal/ Medical History: Reports: Hx Kidney Stones, Hx Ovarian Cysts. Denies: Hx Peritoneal Dialysis Musculoskeletal Medical History: Denies Hx Arthritis Psychiatric Medical History: Denies: Hx Depression Past Surgical History: Reports: Hx Kidney (Renal Surgery) - stents for stones, Hx Tonsillectomy, Hx Urinary Tract Surgery - ureter stents - Immunizations Immunizations up to date: Yes Hx Diphtheria, Pertussis, Tetanus Vaccination: No Physical Exam - Vital signs Vitals: Temp Pulse Resp BP Pulse Ox 99.7 F 115 H 18 110/75 99 02/10/20 19:49 02/10/20 19:49 02/10/20 19:49 02/10/20 19:49 02/10/20 19:49 Course - Re-evaluation Re-evalutation: 02/10/20 22:49 Influenza test is negative patient was noted to have a urinary tract infection. We will add a culture to the urine. Will give Rocephin in the ER per the patient request. We will keep patient on Keflex, follow-up PCP - Vital Signs Vital signs: Temp Pulse Resp BP Pulse Ox 99.7 F 115 H 18 110/75 99 02/10/20 20:05 02/10/20 19:49 02/10/20 19:49 02/10/20 19:49 02/10/20 19:49 - Laboratory Laboratory results interpreted by me: 02/10/20 21:44 Urine Protein 100 H Urine Blood MODERATE H Urine Bilirubin MODERATE H Urine Urobilinogen 4.0 H Ur Leukocyte Esterase MODERATE H Discharge - Discharge Clinical Impression: Fever in adult UTI (urinary tract infection) Qualifiers: Urinary tract infection type: acute cystitis Hematuria presence: with hematuria Qualified Code(s): N30.01 - Acute cystitis with hematuria Condition: Stable Disposition: HOME, SELF-CARE Additional Instructions: 1. Keflex as prescribed, motrin or tylenol for fever and body ache 2. follow up with your PCP for further evaluation and treatment including making sure that the urine infection is clearing 3. return to the ED for any fever, back pain or worsening condition 4. hydrate well at home to flush the system. Prescriptions: Cephalexin Monohydrate [Keflex 500 mg Capsule] 500 mg PO Q6H 7 Days #28 capsule Referrals: KAIA AGUILA FNP-C [Primary Care Provider] - Follow up as needed
[2020-02-10] MEDS ORDERED: ACETAMINOPHEN 325 MG TABLET PO ONE (22:12)
[2020-02-10 22:40] LABS: A TYPE INFLUENZA AG NEGATIVE (NEGATIVE); B INFLUENZA AG NEGATIVE (NEGATIVE)
[2020-02-10 22:44] LABS: APPEARANCE,URINE CLOUDY; BILIRUBIN,URINE MODERATE (NEGATIVE); COLOR,URINE AMBER; GLUCOSE, URINE NEGATIVE (NEGATIVE); KETONES,URINE NEGATIVE (NEGATIVE); LEUKOCYTE ESTERASE,URINE MODERATE (NEGATIVE); NITRITE,URINE NEGATIVE (NEGATIVE); PROTEIN,URINE 100 mg/dL (NEGATIVE)
[2020-02-10] MEDS ORDERED: CEFTRIAXONE INJ 1000 MG VIAL IM ONE (22:49)
[2020-02-10] MEDS ORDERED: LIDOCAINE 1% INJ (10 MG/ML) 10 ML MDV INJ ONE (22:49)
[2020-02-10 22:56] VITALS: BP 117/63
== END 2020-02-10 23:10 | disposition home or self-care (01) ==
LOC: ER 19:41
DX: N30.01 Acute cystitis with hematuria (principal); R50.9 Fever, unspecified; M79.10 Myalgia, unspecified site
CPT/HCPCS: 99284; 96372; 87086; 81025; 87088; 81001; 87804; J3490 ×2; J0696; 87186

== ENCOUNTER 2020-03-16 02:50 | Emergency (ER) | payer MEDICAID ==
[2020-03-16] MEDS ORDERED: CLINDAMYCIN HCL 150 MG CAPSULE PO ONE (05:01)
[2020-03-16] MEDS ORDERED: OXYCODONE-ACETAMINOPHEN 5-325 MG TABLET PO ONE (05:01)
--- NOTE | 2020-03-16 05:06 | ER Document Report ---
ED Skin Rash/Insect Bite/Abscs - General Chief Complaint: Abscess Stated Complaint: ABSCESS UNDER RIGHT ARM Time Seen by Provider: 03/16/20 05:01 Primary Care Provider: KAIA AGUILA FNP-C [Primary Care Provider] - Follow up as needed Notes: CHIEF COMPLAINT: Swelling of the right axilla for 3 days HPI: 34-year-old female presenting with 3 days of tenderness and swelling in the right axilla. Has had a prior axillary abscess that had to be drained. Patient is requesting full sedation for an incision and drainage. No fevers has been using warm compresses at home ROS: See HPI - all other systems were reviewed and are otherwise negative Constitutional: no fever Integumentary: + rash Allergy: no hives Musculoskeletal: no extremity pain or swelling MEDICATIONS: I agree with the patient medications as charted by the RN. ALLERGIES: I agree with the allergies as charted by the RN. PAST MEDICAL HISTORY/PAST SURGICAL HISTORY: Reviewed and agree as charted by RN. SOCIAL HISTORY: Reviewed and agree as charted by RN. FAMILY HISTORY: No significant familial comorbid conditions directly related to patient complaint EXAM: Reviewed vital signs as charted by RN. CONSTITUTIONAL: Alert and oriented and responds appropriately to questions. Well-appearing; well-nourished HEAD: Normocephalic; atraumatic EYES: Conjunctivae clear, sclerae non-icteric ENT: normal nose; no rhinorrhea; moist mucous membranes NECK: Supple without meningismus CARD: symmetric distal pulses RESP: Normal chest excursion without splinting or tachypnea ABD/GI: non-distended BACK: The back appears normal EXT: Normal ROM in all joints; no cyanosis, no effusions, no edema SKIN: Normal color for age and race; warm; dry; good turgor; there is a tender indurated region in the right axilla likely an infected lymph node. Small amount of erythema surrounding this. NEURO: Moves all extremities equally; Motor and sensory function intact PSYCH: The patient's mood and manner are appropriate. Grooming and personal hygiene are appropriate. MDM: 34-year-old female presenting with a right axillary abscess likely an inflamed or infected lymph node. I discussed this at length with the patient. I did offer to incise and drain the area patient is requesting full sedation and anesthesia for this procedure. We discussed the risks inherent in sedation. This is a small indurated area that would require a minimal incision and drainage and I do not believe patient needs full sedation for this. I discussed this at length with the patient she states she would prefer antibiotics and to continue warm compresses and will follow up with surgery clinic. She again reiterates that she does not want incision and drainage tonight. TRAVEL OUTSIDE OF THE [place] IN LAST 30 DAYS: No - Related Data Allergies/Adverse Reactions: No Known Allergies Allergy (Verified 12/03/19 12:46) Past Medical History - Social History Smoking Status: Current Every Day Smoker Family History: Reviewed & Not Pertinent - Past Medical History Cardiac Medical History: Reports: Hx Hypertension - POST , NO LONGER ON MEDS Denies: Hx Coronary Artery Disease, Hx Heart Attack Pulmonary Medical History: Reports: Hx Asthma Denies: Hx Bronchitis, Hx COPD, Hx Pneumonia Neurological Medical History: Reports: Hx Migraine. Denies: Hx Cerebrovascular Accident, Hx Seizures Endocrine Medical History: Denies: Hx Diabetes Mellitus Type 1, Hx Diabetes Mellitus Type 2 Renal/ Medical History: Reports: Hx Kidney Stones, Hx Ovarian Cysts. Denies: Hx Peritoneal Dialysis Musculoskeletal Medical History: Denies Hx Arthritis Psychiatric Medical History: Denies: Hx Depression Past Surgical History: Reports: Hx Kidney (Renal Surgery) - stents for stones, Hx Tonsillectomy, Hx Urinary Tract Surgery - ureter stents - Immunizations Immunizations up to date: Yes Hx Diphtheria, Pertussis, Tetanus Vaccination: No Physical Exam - Vital signs Vitals: Temp Pulse Resp BP Pulse Ox 98.4 F 94 18 126/70 H 100 03/16/20 02:58 03/16/20 02:58 03/16/20 02:58 03/16/20 02:58 03/16/20 02:58 Course - Vital Signs Vital signs: Temp Pulse Resp BP Pulse Ox 98.4 F 94 18 126/70 H 100 03/16/20 02:58 03/16/20 02:58 03/16/20 02:58 03/16/20 02:58 03/16/20 02:58 Discharge - Discharge Clinical Impression: Abscess of axilla, right Condition: Stable Disposition: HOME, SELF-CARE Instructions: Abscess ([facility]) Additional Instructions: Take the clindamycin and pain medications as prescribed no driving if taking narcotics for pain. Continue warm chrome presses to the area. Follow-up with the surgery clinic for further evaluation and possible incision and drainage as discussed call for appointment. Prescriptions: Clindamycin HCl 300 mg PO TID #30 capsule Hydrocodone/Acetaminophen [[place] 5-325 mg Tablet] 1 tab PO Q4 PRN #15 tablet PRN Reason: Referrals: KAIA AGUILA FNP-C [Primary Care Provider] - Follow up as needed MARCIO FAJARDO MD [ACTIVE STAFF] - Follow up as needed
[2020-03-16 05:59] VITALS: BP 120/69
== END 2020-03-16 05:25 | disposition home or self-care (01) ==
LOC: ER 02:50
DX: L02.413 Cutaneous abscess of right upper limb (principal); F17.200 Nicotine dependence, unspecified, uncomplicated; Z87.442 Personal history of urinary calculi
CPT/HCPCS: 99283; J3490

== ENCOUNTER → 2020-04-29 | Day surgery (SDC) | payer MEDICAID ==
[~2020-04-29] MED LIST changes: +CEFAZOLIN 2 GM/D5W RTU 2 GM/50 ML RTUPB IV PRN; +DEXAMETHASONE SOD PHOSPHATE INJ 4 MG/1 ML VIAL ONE; +FENTANYL CITRATE INJ/PF 100 MCG/2 ML AMPUL ONE; -LACTATED RINGERS 1000 ML IV PRN; +MIDAZOLAM 2 MG/2 ML INJ ONE; +ONDANSETRON HCL INJ/PF 4 MG/2 ML SDV ONE; +PROPOFOL INJ 200 MG/20 ML VIAL IV ONE; -SCOPOLAMINE HYDROBROMIDE 1.5 MG PATCH.TD72 TD PRN
[2020-04-29 15:04] VITALS: BP 109/73
== END ==
LOC: OROUT 11:17
PROVIDERS: ATTEND Surgery
DX: L73.2 Hidradenitis suppurativa (principal); Z20.828 Contact with and (suspected) exposure to other viral communicable diseases; Z01.812 Encounter for preprocedural laboratory examination; Z53.8 Procedure and treatment not carried out for other reasons
CPT/HCPCS: 87635; 81025; C9803; J1100; J2250; J2405; J2704; J3010

== ENCOUNTER 2020-05-12 14:42 | Emergency (ER) | payer MEDICAID ==
[2020-05-12 14:46] VITALS: BP 134/63
--- NOTE | 2020-05-12 15:04 | ER Document Report ---
ED Medical Screen (RME) - General Chief Complaint: Vaginal Bleeding Stated Complaint: VAGINAL BLEEDING Time Seen by Provider: 05/12/20 14:58 Primary Care Provider: KAIA AGUILA FNP-C [Primary Care Provider] - Follow up as needed Notes: Patient is a 34-year-old female, 6 para 3 who presents emergency department with a chief complaint of vaginal bleeding. Patient reports that her last menstrual cycle was March 30. She states that she did have a confirmed with the health department. Patient reports 1 week ago developing some lower abdominal cramping. The cramping has resolved. Patient reports having some vaginal bleeding that started yesterday. She reports a mixture between bright red blood and brown blood without blood clots. Patient denies urinary symptoms but reports she could have a urinary tract infection as she does get them very frequently. Denies fever. TRAVEL OUTSIDE OF THE [place] IN LAST 30 DAYS: No - Related Data Allergies/Adverse Reactions: No Known Allergies Allergy (Verified 04/29/20 11:26) Home Medications: Albuterol Past Medical History - Past Medical History Cardiac Medical History: Denies: Hx Coronary Artery Disease, Hx Heart Attack, Hx Hypertension Pulmonary Medical History: Reports: Hx Asthma - INHALERS NEEDED Denies: Hx Bronchitis, Hx COPD, Hx Pneumonia Neurological Medical History: Reports: Hx Migraine. Denies: Hx Cerebrovascular Accident, Hx Seizures Endocrine Medical History: Denies: Hx Diabetes Mellitus Type 1, Hx Diabetes Mellitus Type 2 Renal/ Medical History: Reports: Hx Kidney Stones, Hx Ovarian Cysts. Denies: Hx Peritoneal Dialysis Musculoskeltal Medical History: Denies Hx Arthritis Psychiatric Medical History: Denies: Hx Depression Past Surgical History: Reports: Hx Kidney (Renal Surgery) - stents for stones, Hx Tonsillectomy, Hx Urinary Tract Surgery - ureter stents - Immunizations Immunizations up to date: Yes Hx Diphtheria, Pertussis, Tetanus Vaccination: Yes - [id number] Physical Exam - Vital signs Vitals: Temp Pulse Resp BP Pulse Ox 99.3 F 102 H 16 134/63 H 100 05/12/20 14:45 05/12/20 14:45 05/12/20 14:45 05/12/20 14:45 05/12/20 14:45 Course - Re-evaluation Re-evalutation: 05/12/20 15:03 Patient nontoxic-appearing at this time. Will order basic labs, and ultrasound to start. I have greeted and performed a rapid initial assessment of this patient. A comprehensive ED assessment and evaluation of the patient, analysis of test results and completion of the medical decision making process will be conducted by additional ED providers. - Vital Signs Vital signs: Temp Pulse Resp BP Pulse Ox 99.3 F 102 H 16 134/63 H 100 05/12/20 14:45 05/12/20 14:45 05/12/20 14:45 05/12/20 14:45 05/12/20 14:45 Doctor's Discharge - Discharge Referrals: KAIA AGUILA FNP-C [Primary Care Provider] - Follow up as needed
[2020-05-12 15:36] LABS: ABSOLUTE BASOPHILS # (AUTO) 0.1 10^3/uL (0.0-0.2); ABSOLUTE EOSINOPHILS # (AUTO) 0.2 10^3/uL (0.0-0.6); ABSOLUTE LYMPHOCYTES (AUTO) 2.6 10^3/uL (0.5-4.7); ABSOLUTE MONOCYTES (AUTO) 0.5 10^3/uL (0.1-1.4); ABSOLUTE NEUT (AUTO) 6.6 10^3/uL (1.7-8.2); BASOPHILS % (AUTO) 0.6 % (0-2); EOSINOPHILS % (AUTO) 1.5 % (0-6); HEMATOCRIT 37.1 % (36.0-47.0); HEMOGLOBIN 12.4 g/dL (12.0-15.5); LYMPHOCYTES % (AUTO) 26.1 % (13-45); MEAN CORPUSCULAR HEMOGLOBIN 27.3 pg (27.0-33.4); MEAN CORPUSCULAR HGB CONC 33.4 g/dL (32.0-36.0); MEAN CORPUSCULAR VOLUME 82 fl (80-97); PLATELET COUNT 297 10^3/uL (150-450); RED BLOOD COUNT 4.53 10^6/uL (3.72-5.28); RED CELL DISTRIBUTION WIDTH 14.5 % (11.5-14.0); SEGMENTED NEUTROPHILS % (AUTO) 66.8 % (42-78); TOTAL CELLS COUNTED % (AUTO) 100 %; WHITE BLOOD COUNT 9.8 10^3/uL (4.0-10.5)
[2020-05-12 15:50] LABS: APPEARANCE,URINE CLEAR; BILIRUBIN,URINE NEGATIVE (NEGATIVE); COLOR,URINE YELLOW; GLUCOSE, URINE NEGATIVE (NEGATIVE); KETONES,URINE NEGATIVE (NEGATIVE); LEUKOCYTE ESTERASE,URINE LARGE (NEGATIVE); NITRITE,URINE NEGATIVE (NEGATIVE); PROTEIN,URINE 30 mg/dL (NEGATIVE); URINE SPECIFIC GRAVITY 1.024
[2020-05-12 15:54] LABS: ALBUMIN 4.3 g/dL (3.5-5.0); ALKALINE PHOSPHATASE 57 U/L (38-126); ANION GAP 5 (5-19); ASPARTATE AMINO TRANSFERASE 19 U/L (14-36); BILIRUBIN,DIRECT 0.1 mg/dL (0.0-0.4); BILIRUBIN,TOTAL 0.4 mg/dL (0.2-1.3); BLOOD UREA NITROGEN 8 mg/dL (7-20); CALCIUM 9.9 mg/dL (8.4-10.2); CARBON DIOXIDE 28 mmol/L (22-30); CHLORIDE 101 mmol/L (98-107); GLUCOSE 105 mg/dL (75-110); POTASSIUM 3.6 mmol/L (3.6-5.0); TOTAL PROTEIN 7.6 g/dL (6.3-8.2)
--- NOTE | 2020-05-12 16:45 | RADIOLOGY REPORT (SQ) ---
EXAM DESCRIPTION: U/S OB TRANSVAG W/DOPPLER IMAGES COMPLETED DATE/TIME: 05/12/2020 4:17 pm REASON FOR STUDY: Vaginal bleeding, estimates 6 weeks COMPARISON: None. TECHNIQUE: Transvaginal static and realtime grayscale images acquired of the pelvis. Additional dahiana cted spectral and color Doppler images recorded. All images stored on PACs. bHCG: Pending. CLINICAL DATES: 6 week 1 day. LIMITATIONS: None. FINDINGS: FETUS: Single Living intrauterine . ULTRASOUND EGA: 6 week 2 day. ULTRASOUND REBECCA: 01/03/2021. EFW: Not applicable less than 20 weeks. CRL: 0.51 cm. FHR: 110 beats per minute. SURVEY: No visualized anomalies. AMNIOTIC FLUID: Adequate amount. PLACENTA: Not yet developed due to early gestation. SUBCHORIONIC BLEED: Yes. SIZE OF BLEED: 1.4 x 1.9 x 2.1 cm. UTERUS: No masses. No anomalies. CERVICAL LENGTH: 3.5 cm. Closed. RIGHT ADNEXA: Normal ovary with normal vascular flow. No adnexal free fluid. Complex corpus luteum measuring 2.6 cm. LEFT ADNEXA: Normal ovary with normal vascular flow. No adnexal free fluid. No adnexal masses. FREE FLUID: None. OTHER: No other significant finding. IMPRESSION: LIVING INTRAUTERINE . EGA 6 WEEK 2 DAY. SUBCHRONIC BLEED. Trimester of : First trimester - 0 to 13 weeks. TECHNICAL DOCUMENTATION: JOB ID: [id number] 2010 [employer]- All Rights Reserved Reading location - IP/workstation name: [email or web address]
[2020-05-12] MEDS ORDERED: CEPHALEXIN 500 MG CAPSULE PO ONE (17:33)
--- NOTE | 2020-05-12 17:38 | ER Document Report ---
ED General - General Chief Complaint: Vaginal Bleeding Stated Complaint: VAGINAL BLEEDING Time Seen by Provider: 05/12/20 14:58 Primary Care Provider: KAIA AGUILA FNP-C [Primary Care Provider] - Follow up as needed LEO LLOYD MD [ACTIVE STAFF] - Follow up in 3-5 days TRAVEL OUTSIDE OF THE [place] IN LAST 30 DAYS: No - HPI Notes: Patient is a 34-year-old healthy female who is a G6, P3 at approximately 6 weeks who presents with vaginal bleeding. Patient states her last menstrual period was March 30. She had a positive test at the health department. Patient states that today, she noted she had some blood on the toilet paper when she wiped. She is unable to describe the color of it but states it is between dark red and brown. She states she is not having any blood on a pad. Bleeding is very minimal. She does not have any abdominal cramping. No nausea or vomiting. No headaches. No chest pain or shortness of breath. No symptoms of a UTI. Has not had an ultrasound yet. - Related Data Allergies/Adverse Reactions: No Known Allergies Allergy (Verified 04/29/20 11:26) Home Medications: Albuterol Past Medical History - General Information source: Patient - Social History Smoking Status: Current Every Day Smoker Family History: Reviewed & Not Pertinent - Past Medical History Cardiac Medical History: Denies: Hx Coronary Artery Disease, Hx Heart Attack, Hx Hypertension Pulmonary Medical History: Reports: Hx Asthma - INHALERS NEEDED Denies: Hx Bronchitis, Hx COPD, Hx Pneumonia Neurological Medical History: Reports: Hx Migraine. Denies: Hx Cerebrovascular Accident, Hx Seizures Endocrine Medical History: Denies: Hx Diabetes Mellitus Type 1, Hx Diabetes Mellitus Type 2 Renal/ Medical History: Reports: Hx Kidney Stones, Hx Ovarian Cysts. Denies: Hx Peritoneal Dialysis Musculoskeletal Medical History: Denies Hx Arthritis Psychiatric Medical History: Denies: Hx Depression Past Surgical History: Reports: Hx Kidney (Renal Surgery) - stents for stones, Hx Tonsillectomy, Hx Urinary Tract Surgery - ureter stents - Immunizations Immunizations up to date: Yes Hx Diphtheria, Pertussis, Tetanus Vaccination: Yes - [id number] Review of Systems - Review of Systems Notes: CONSTITUTIONAL: No fever, fatigue or weight loss. SKIN: No rash. HENT: No congestion, ear pain, or sore throat. CARDIOVASCULAR: No chest pain or edema. RESPIRATORY: No cough, shortness of breath, congestion, or wheezing. GASTROINTESTINAL: No abdominal pain, nausea, vomiting, bloody stools or d iarrhea. GENITOURINARY: No dysuria. Positive for vaginal bleeding. MUSCULOSKELETAL: No joint pain or swelling. NEUROLOGIC: No seizures. No headache, focal weakness or sensory changes. HEMATOLOGIC: No unusual bruising or bleeding. PSYCHIATRIC: No depression or anxiety. Physical Exam - Vital signs Vitals: Temp Pulse Resp BP Pulse Ox 99.3 F 102 H 16 134/63 H 100 05/12/20 14:45 05/12/20 14:45 05/12/20 14:45 05/12/20 14:45 05/12/20 14:45 - General General appearance: Appears well In distress: None Notes: VITAL SIGNS: Within normal limits. GENERAL: No acute distress, non-toxic appearance. HEAD: Normal with no signs of head trauma. EYES: Cconjunctiva normal, no discharge. EARS: Hearing grossly intact. NOSE: Normal. NECK: Normal range of motion, no tenderness, supple, no lymphadenopathy, No ad enopathy, no JVD. CHEST: Clear breath sounds bilaterally. No wheezes, rales, or rhonchi. CARDIAC: Regular rate and rhythm. S1 and S2, without murmurs, gallops, or rubs. VASCULAR: No Edema. ABDOMEN: Normal and soft with no tenderness, no masses or pulsatile masses. MUSCULOSKELETAL: Good range of motion of all major joints. Extremities without clubbing, cyanosis or edema. NEUROLOGICAL: Alert and oriented x 3. No focal sensory or strength deficits. Speech normal. Follows commands appropriately. PSYCHIATRIC: Normal Affect, judgement and mood. SKIN: Normal appearance with no rashes or lesions. Course - Re-evaluation Re-evalutation: 05/12/20 17:53 Patient appears well on exam. She is not having any complaints at this time. Patient has a live intrauterine gestation at 6 weeks and 2 days. She does have a subchorionic bleed. I advised her to do pelvic rest. She also has evidence of a UTI. I will treat her with Keflex. Patient was Rh+ on previous testing so she is not requiring RhoGam. I did recommend she follow-up with OB this week. She was given strict return precautions. Patient is very agreeable. She did request to have Diflucan in case she gets a yeast infection from the antibiotic. As she is at her first trimester, data states that Diflucan should be avoided in the first trimester. I did explain this to her. I told her to call her PCP if she does get a yeast infection. Patient is very agreeable to this. - Vital Signs Vital signs: Temp Pulse Resp BP Pulse Ox 99.3 F 102 H 16 134/63 H 100 05/12/20 14:45 05/12/20 14:45 05/12/20 14:45 05/12/20 14:45 05/12/20 14:45 - Laboratory Results Result Diagrams: 05/12/20 15:00 05/12/20 15:00 Laboratory Results Interpreted: 05/12/20 05/12/20 05/12/20 15:00 15:00 15:00 RDW 14.5 H Sodium 134.3 L Beta HCG, Quant 15791.00 H Urine Protein 30 H Urine Urobilinogen 2.0 H Ur Leukocyte Esterase LARGE H Urine Ascorbic Acid 40 H Urine HCG, Qual POSITIVE H Critical Laboratory Results Reviewed: No Critical Results - Radiology Results Critical Radiology Results Reviewed: No Critical Results Discharge - Discharge Clinical Impression: First trimester bleeding Subchorionic hematoma in first trimester Qualifiers: Fetus number: single or unspecified fetus Qualified Code(s): O41.8X10 - Other specified disorders of amniotic fluid and membranes, first trimester, not applicable or unspecified Urinary tract infection Qualifiers: Urinary tract infection type: site unspecified Hematuria presence: without hematuria Qualified Code(s): N39.0 - Urinary tract infection, site not specified Condition: Stable Disposition: HOME, SELF-CARE Instructions: Bleeding During Early ([facility]) Additional Instructions: Your work-up today is reassuring. Your ultrasound shows a live gestation at 6 weeks and 2 days. You do have a subchorionic hemorrhage. Please make sure that you do pelvic rest. You also have evidence of a UTI. Please take your antibi otics as prescribed. Please make sure you are staying hydrated. Please follow- up with [facility] this week. Return to the ER immediately for any worsening bleeding, cramping, fevers, any other symptoms. Prescriptions: Cephalexin Monohydrate [Keflex 500 mg Capsule] 500 mg PO BID 7 Days #14 capsule Referrals: GILBERT,STORMY, LUMP MAKER-C [Primary Care Provider] - Follow up as needed LEO LLOYD MD [ACTIVE STAFF] - Follow up in 3-5 days
--- OUTSIDE RECORDS SUMMARY | 2020-05-12 17:54 | XMS REPORT ---
:1985 Author Organization [facility] Address [facility] [place] [address] [place] [id number] Care Team Providers Name Role Phone Esuebio Attending Clinician Unavailable Kaylynn Attending Clinician Unavailable Allergies, Adverse Reactions, Alerts This patient has no known allergies or adverse reactions. Medications This patient has no known medications. Problems This patient has no known problems. Procedures Procedure Date / Time Performed Performing Clinician Raissa GOULDG MED/CURRENT MED MERGE 2019-01-21 15:00:00 PREV VISIT EST AGE 18-39 2019-01-21 15:00:00 OFFICE/OUTPATIENT VISIT EST 2018-08-16 10:00:00 OFFICE/OUTPATIENT VISIT EST 2018-07-16 10:30:00 OFFICE/OUTPATIENT VISIT EST 2017-01-15 10:30:00 Results Test Description Test Time Test Comments Text Results Atomic Results Result Comments SARS-CoV-2 RNA Resp Ql LORNE+probe 2020-04-27 00:00:00 Test Item Value Reference Range Comments SARS-CoV-2 RNA Resp Ql LORNE+probe Not detected [facility] ID: (test code = 51500-1) [id number] CHLAMYDIA/N. GONORRHOEAE RNA, TMA, [id number] 06:43:00 Test Item Value Reference Range Comments CHLAMYDIA TRACHOMATIS RNA, TMA, UROGENITAL NOT DETECTED NOT D ETECTED (test code = 82474-1) NEISSERIA GONORRHOEAE RNA, TMA, UROGENITAL NOT DETECTED NOT D ETECTED (test code = 28415-6) CULTURE, URINE, [id number] 00:55:00 Test Item Value Reference Range Comments SOURCE: (test code = 76905-2) NOT GIVEN STATUS: (test code = 8251-1) FINAL RESULT: (test code = 630-4) No G rowth CHLAMYDIA/N. GONORRHOEAE RNA, TMA, [id number] 14:07:00 Test Item Value Reference Range Comments NEISSERIA GONORRHOEAE RNA, TMA, UROGENITAL NOT DETECTED NOT D ETECTED (test code = 30634831) CHLAMYDIA TRACHOMATIS RNA, TMA, UROGENITAL NOT DETECTED NOT D ETECTED (test code = 37243526) CULTURE, URINE, [id number] 14:07:00SEE NOTERapid Influenza B\S\2020-02-13 16:15:00 Test Item Value Reference Range Comments Influenza B (test code = FLUB) Negative Rapid Influenza A\S\2020-02-13 16:15:00 Test Item Value Reference Range Comments Influenza A (test code = FLUA) Negative THINPREP TIS PAP AND HPV mRNA E6/E7, CHLAMYDIA/N.[id number] 16:15:00 Test Item Value Reference Range Comments INFECTION: (test code = Trichomonas vaginalis 85811117) identified. INTERPRETATION/RESULT: (test Negative for intraepithelial code = 38655866) lesion or malignancy. PREV. BX: (test code = UNKNOWN 77015407) CHLAMYDIA TRACHOMATIS RNA, NOT DETECTED NOT DETECTED TMA, UROGENITAL (test code = 79393383) NEISSERIA GONORRHOEAE RNA, NOT DETECTED NOT DETECTED TMA, UROGENITAL (test code = 68384131) COMMENT: (test code = This Pap test has been evaluated 31361064) with computer assisted technology. SOURCE: (test code = Cervix, Endocervix 94316583) HPV mRNA E6/E7 (test code = Not Detected Not Detected 42541897) HEMOGLOBIN A1c WITH [id number] 16:02:00 Test Item Value Reference Range Comments HEMOGLOBIN A1c (test code = 02760521) 5.8 % of total Hgb <5.7 eAG (mmol/L) (test code = 71924370) 6.6 (calc) eAG (mg/dL) (test code = 79162942) 120 (calc) HIV 1/2 ANTIGEN/ANTIBODY,FOURTH GENERATION [id number] 16:02:00NON-REACTIVE BV/VAGINITIS PANEL DNA [id number] 16:02:00SEE NOTERPR (DX) W/REFL TITER AND CONFIRMATORY [id number] 16:02:00NON-REACTIVECULTURE, URINE, ROUTINE 2018-08-16 13:41:00SEE NOTESEE NOTEHEPATIC FUNCTION [id number] 11:25:00 Test Item Value Reference Range Comments ALT (test code = 03944588) 15 U/L 6-29 ALBUMIN/GLOBULIN RATIO (test code = 1.5 (calc) 1.0-2.5 80123996) GLOBULIN (test code = 35393626) 3.0 g/dL (calc) 1.9-3.7 BILIRUBIN, INDIRECT (test code = 65934505) 0.4 mg/dL (calc) 0.2- 1.2 BILIRUBIN, DIRECT (test code = 96567700) 0.1 mg/dL < OR = 0.2 ALKALINE PHOSPHATASE (test code = 26878335) 72 U/L 33-1 15 AST (test code = 40842509) 13 U/L 10-30 BILIRUBIN, TOTAL (test code = 27232651) 0.5 mg/dL 0.2-1.2 ALBUMIN (test code = 93430255) 4.4 g/dL 3.6-5.1 PROTEIN, TOTAL (test code = 14915142) 7.4 g/dL 6.1-8.1 HEMOGLOBIN A1c WITH [id number] 11:25:00 Test Item Value Reference Range Comments eAG (mg/dL) (test code = 00861682) 123 (calc) eAG (mmol/L) (test code = 39705927) 6.8 (calc) HEMOGLOBIN A1c (test code = 14019676) 5.9 % of total Hgb <5.7 CBC (INCLUDES DIFF/PLT)2018-07-16 11:25:00 Test Item Value Reference Range Comments EOSINOPHILS (test code = 31882110) 2.2 % RDW (test code = 59320375) 13.4 % 11.0-15.0 ABSOLUTE NEUTROPHILS (test code = 15978858) 5527 cells/uL 1500 -7800 ABSOLUTE EOSINOPHILS (test code = 77138815) 207 cells/uL 15-5 00 BASOPHILS (test code = 62596188) 0.4 % MCHC (test code = 78981014) 33.0 g/dL 32.0-36.0 MCV (test code = 30112798) 82.7 fL 80.0-100.0 WHITE BLOOD CELL COUNT (test code = 9.4 Thousand/uL 3.8-10.8 04825658) LYMPHOCYTES (test code = 91916196) 30.8 % MCH (test code = 05537515) 27.3 pg 27.0-33.0 ABSOLUTE BASOPHILS (test code = 80500256) 38 cells/uL 0-200 MPV (test code = 21670715) 9.8 fL 7.5-12.5 RED BLOOD CELL COUNT (test code = 41590848) 4.69 Million/uL 3.80 -5.10 ABSOLUTE MONOCYTES (test code = 26186920) 733 cells/uL 200-95 0 ABSOLUTE LYMPHOCYTES (test code = 25758150) 2895 cells/uL 850- 3900 PLATELET COUNT (test code = 16797946) 339 Thousand/uL 140-400 MONOCYTES (test code = 00091750) 7.8 % NEUTROPHILS (test code = 56793306) 58.8 % HEMOGLOBIN (test code = 12958767) 12.8 g/dL 11.7-15.5 HEMATOCRIT (test code = 92385628) 38.8 % 35.0-45.0 [id number] 11:25:001.28COMPREHENSIVE METABOLIC [id number] 11:25:00 Test Item Value Reference Range Comments BUN/CREATININE RATIO (test code = NOT APPLICABLE (calc) 6-00) PROTEIN, TOTAL (test code = 89218002) 7.4 g/dL 6.1-8.1 ALBUMIN (test code = 24812234) 4.4 g/dL 3.6-5.1 ALT (test code = 21646378) 15 U/L 6-29 CARBON DIOXIDE (test code = 90446847) 27 mmol/L 20-32 UREA NITROGEN (BUN) (test code = 10 mg/dL 7-25 14609889) SODIUM (test code = 75515112) 139 mmol/L 135-146 CREATININE (test code = 88373495) 0.55 mg/dL 0.50-1.10 eGFR NON-AFR. CAMEROONIAN (test code = 125 mL/min/1.73m2 > OR = 60 04860774) GLUCOSE (test code = 59044503) 90 mg/dL 65-99 POTASSIUM (test code = 11405083) 4.0 mmol/L 3.5-5.3 ALKALINE PHOSPHATASE (test code = 72 U/L 33-115 01343585) BILIRUBIN, TOTAL (test code = 0.5 mg/dL 0.2-1.2 90536286) AST (test code = 05223740) 13 U/L 10-30 ALBUMIN/GLOBULIN RATIO (test code = 1.5 (calc) 1.0-2.5 30702227) eGFR (test code = 145 mL/min/1.73m2 > OR = 60 97265713) CALCIUM (test code = 08482657) 9.6 mg/dL 8.6-10.2 CHLORIDE (test code = 64449737) 104 mmol/L 98-110 GLOBULIN (test code = 49363054) 3.0 g/dL (calc) 1.9-3.7 Complement Component [id number] 11:03:00 Test Item Value Reference Range Comments Complement C3 (test code = 881631) 137 mg/dL 90-180 Complement Component [id number] 11:03:00 Test Item Value Reference Range Comments Complement C4 (test code = 994130) 20 mg/dL 16-47 WILLY screen, IFA w/rfx Titer/[id number] 11:03:00 Test Item Value Reference Range Comments Anti Nuclear Antibody (test code = 708332) NEG NEGAT KEY Thyroid Panel with [id number] 11:03:00 Test Item Value Reference Range Comments TSH (test code = 868689) 2.16 mIU/L T3 Uptake (test code = 232598) 31 % 22-35 T4 (test code = 591657) 6.8 ug/dL 4.5-12.0 Free Thyroxine Index (test code = 495911) 2.1 1.4-3. 8 Hemoglobin A1c with [id number] 11:03:00 Test Item Value Reference Range Comments eAG (calc) (test code = 819227) 108 mg/dL Hemoglobin A1C (test code = 928342) 5.4 % <5.7 Antiphospholopid Ab [id number] 11:03:00 Test Item Value Reference Range Comments Beta2-Glycoprotein I (IgG) (test code = 727981) <9 SGU <=20 Beta2-Glycoprotein I (IgM) (test code = 465631) <9 SMU <=20 Phosphatidylserine (IgM) (test code = 727156) <25 U/mL <2 5 Cardiolipin Ab (IgA) (test code = 517065) <11 APL Cardiolipin Ab (IgG) (test code = 264812) <14 GPL Phosphatidylserine (IgA) (test code = 804558) <20 U/mL <2 0 Cardiolipin Ab (IgM) (test code = 053709) <12 MPL Phosphatidylserine (IgG) (test code = 903747) <10 U/mL <1 0 Beta2-Glycoprotein I (IgA) (test code = 559854) <9 MICHAEL <=20 Hemoglobin A1c with [id number] 15:15:00 Test Item Value Reference Range Comments Estimated Average Glucose (test code = 766855) 128 mg/dL < 117 Hemoglobin A1C (test code = 098432) 6.1 % <5.7 Lipid [id number] 15:15:00 Test Item Value Reference Range Comments Cholesterol (test code = 307727) 170 mg/dL 125-200 LDL Cholesterol (Calc) (test code = 697163) 120 mg/dL <130 Triglyceride (test code = 811235) 77 mg/dL <150 Total Chol/HDL Ratio (test code = 300650) 4.9 Ratio <=5.0 VLDL Cholesterol (Calc) (test code = 481205) 15 mg/dL <30 HDL Cholesterol (test code = 432753) 35 mg/dL >=46 Assessments Condition Name Status Diagnosis Date Treating 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) w/o Active abn findings Prediabetes Active Encntr screen for infections w sexl mode of Active transmiss Body mass index (BMI) 29.0-29.9, adult Active Abnormal uterine and vaginal bleeding, Active unspecified Acute upper respiratory infection, Active unspecified Dysuria Active Body mass index (BMI) 31.0-31.9, adult Active Prediabetes Active Abnormal uterine and vaginal bleeding, Active unspecified Gastro-esophageal reflux disease without Active esophagitis Tension-type headache, unspecified, not Active intractable Prediabetes Active Dermatitis, unspecified Active Family history of diseases of the skin, Active subcu Mild persistent asthma, uncomplicated Active Encounters Start End Encounter Admission Attending Care Care Encounter Date/Time Date/Time Type Type Clinicians Facility Department ID 2019-01-21 2019-01-21 Outpatient Euseboi [facility] 4 [id number] 15:00:00 15:00:00 [facility] [id number] and [id number] [facility] [id number] Clini 2018-08-16 2018-08-16 Outpatient Eusebio [facility] 0 [id number] 10:00:00 10:00:00 [facility] [id number] s [id number] and [id number] [facility], 2018-07-16 2018-07-16 Outpatient Eusebio [facility] 2 [id number] 10:30:00 10:30:00 [facility] [id number] s [id number] and [id number] [facility], 2017-01-15 2017-01-15 Outpatient Kaylynn [facility] 25 [id number] 10:30:00 10:30:00 [facility] [id number] s [id number] and [id number] [facility] Social History This patient has no known social history. Vital Signs This patient has no known vital signs.
== END 2020-05-12 18:20 | disposition home or self-care (01) ==
LOC: ER 14:42
DX: O20.8 Other hemorrhage in early pregnancy (principal); O23.41 Unspecified infection of urinary tract in pregnancy, first trimester; O99.511 Diseases of the respiratory system complicating pregnancy, first trimester; J45.909 Unspecified asthma, uncomplicated; O99.331 Smoking (tobacco) complicating pregnancy, first trimester; F17.200 Nicotine dependence, unspecified, uncomplicated; Z67.90 Unspecified blood type, Rh positive; Z3A.01 Less than 8 weeks gestation of pregnancy; Z79.899 Other long term (current) drug therapy
CPT/HCPCS: 36415; 76817; 80053; 81001; 81025; 84702; 85025; 87086; 87088; 87186; 93976; 99284